=== PATIENT | female | born 1995 | race Two or more races ===

== ENCOUNTER → 2021-06-10 10:15 | Outpatient (BNVA) | payer OTHER, SELFPAY | PROVIDERS: PCP Physician Assistant Medical; Referring Provider Physician Assistant Medical; Visit Provider Physician Assistant ==

== ENCOUNTER → 2021-07-10 08:36 | Outpatient (BNVA) | payer OTHER, SELFPAY | PROVIDERS: PCP Physician Assistant Medical; Visit Provider Surgery ==

== ENCOUNTER 2021-07-14 10:02 | Outpatient (REF) | payer OTHER, SELFPAY ==
--- NOTE | ~2021-07-14 | XR_ITS ---
EXAMINATION: XR CHEST CLINICAL INFORMATION: Obesity COMPARISON: None TECHNIQUE: 2 views of the chest were obtained. FINDINGS: No significant abnormality is noted involving the heart, lungs, mediastinum, bony thorax or soft tissues. XR/XR chest 2V IMPRESSION: Unremarkable examination.
--- NOTE | 2021-07-14 10:15 | ECG_ITS ---
Test Reason : E66.0 Blood Pressure : / mmHG Vent. Rate : 072 BPM Atrial Rate : 072 BPM P-R Int : 134 ms QRS Dur : 094 ms QT Int : 392 ms P-R-T Axes : 022 036 028 degrees QTc Int : 429 ms Normal sinus rhythm Normal ECG No previous ECGs available Referred By: Jean-Pierre Caceres Electronically Signed By:OZZIE DELACRUZ
[2021-07-14 10:29] LABS: MANUAL DIFF FLAG NO
[2021-07-14 10:47] LABS: Basophils Absolute Auto 0.1 X10*3/uL (0.0-0.2); Basophils Percent Auto 0.6 % (0-2); Eosinophils Absolute Auto 0.5 X10*3/uL (0.0-0.4); Eosinophils Percent Auto 4.2 % (0-4); Hemoglobin 13.9 g/dl (12.0-16.0); Imm Gran Abs Auto 0.03 X10*3/uL (0.00-0.03); Imm Gran Pct Auto 0.3 % (0.0-0.4); Lymphocytes Absolute Auto 2.9 X10*3/uL (1.2-4.9); Lymphocytes Percent Auto 26.9 % (20-40); Mean Corpuscular HGB Conc 32.3 g/dl (31.0-35.0); Mean Corpuscular Hemoglobin 26.8 pg (27.0-33.0); Mean Corpuscular Volume 82.9 fL (80.0-98.0); Mean Platelet Volume 11.6 fL (9.4-12.3); Monocytes Absolute Auto 0.5 X10*3/uL (0.1-1.2); Monocytes Percent Auto 4.8 % (2-11); Neutrophils Absolute Auto 6.9 x10*3/uL (2.0-8.3); Neutrophils Percent Auto 63.2 % (45-73); Platelet Count 313 X10*3/uL (160-400); Red Blood Count 5.19 X10*6/uL (4.20-5.50); Red Cell Distribution Width 14.6 % (11.0-16.0); White Blood Count 10.9 X10*3/uL (4.8-10.8)
[2021-07-14 10:55] LABS: Estimated Average Glucose 128 mg/dL; Hemoglobin A1c % 6.1 %
[2021-07-14 11:25] LABS: Alanine Aminotransferase 56 U/L (0-31); Albumin Level 3.8 g/dL (3.5-5.0); Alkaline Phosphatase 38 U/L (39-117); Anion Gap 14 (12-20); Aspartate Amino Transferase 27 U/L (5-31); Bilirubin Total 0.4 mg/dL (0.0-1.0); Blood Urea Nitrogen 11 mg/dL (9-16); Calcium 8.9 mg/dL (8.4-10.2); Carbon Dioxide 23 mmol/L (22-29); Chloride 107 mmol/L (96-108); Cholesterol 168 mg/dL; Estimated Glomerular Filt Rate > 60; Glucose Random 112 mg/dL (60-115); HDL Cholesterol 38 mg/dL; Iron 99 mcg/dL (30-160); LDL Cholesterol Calculated 112 mg/dl; Percent Iron Saturation 29 % (15-50); Potassium 4.3 mmol/L (3.3-5.1); Sodium 140 mmol/L (135-145); Total Iron Binding Capacity 344 mcg/dL (228-428); Total Protein 7.2 g/dL (6.5-8.0); Triglycerides 91 mg/dL; Unsaturated Iron Binding 245 ug/dL
[2021-07-14 11:36] LABS: Ferritin 100 ng/mL (10-122); TSH reflex Free T4 1.91 uIU/mL (0.32-4.0); Vitamin D 25-OH Total 17.6 ng/mL (>30)
[2021-07-14 11:48] LABS: Folate 10.4 ng/mL (> or = 4.0); Vitamin B12 587 pg/mL (200-900)
[2021-07-14 14:29] LABS: Insulin 31 uU/mL (2-29)
[2021-07-15 13:01] LABS: Calcium (PTHI) 8.8 mg/dL (8.6-10.2); PTHI 55 pg/mL (14-64)
[2021-07-17 04:12] LABS: Zinc 82 mcg/dL (60-130)
[2021-07-19 13:26] LABS: Vitamin B1 8 nmol/L (8-30)
[2021-07-20 01:52] LABS: Vitamin A 42 mcg/dL (38-98)
== END 2021-07-14 10:03 | disposition home or self-care (01) ==
LOC: HO.XRAY 10:02
PROVIDERS: PCP Physician Assistant Medical; Visit Provider Surgery
DX: E11.9 Type 2 diabetes mellitus without complications (principal); E66.01 Morbid (severe) obesity due to excess calories; E78.5 Hyperlipidemia, unspecified; J45.909 Unspecified asthma, uncomplicated
CPT/HCPCS: 36415; 71046; 80053; 80061; 82306; 82607; 82728; 82746; 83036; 83525; 83540; 83970; 84425; 84443; 84590; 84630; 85025; 86140; 93005

== ENCOUNTER → 2021-08-04 08:10 | Outpatient (BNVA) | payer OTHER, SELFPAY | PROVIDERS: PCP Physician Assistant Medical; Visit Provider Dietitian, Registered | DX: E66.01 Morbid (severe) obesity due to excess calories (principal); E11.9 Type 2 diabetes mellitus without complications; Z68.42 Body mass index [BMI] 45.0-49.9, adult | CPT/HCPCS: 97802 ==

== ENCOUNTER → 2021-08-05 17:00 | Outpatient (BNVA) | payer OTHER, SELFPAY | PROVIDERS: PCP Physician Assistant Medical; Visit Provider Counselor Mental Health | DX: F50.81 Binge eating disorder (principal); F41.9 Anxiety disorder, unspecified | CPT/HCPCS: 90791 ==

== ENCOUNTER 2021-08-26 09:40 | Outpatient (REF) | payer OTHER, SELFPAY ==
--- NOTE | ~2021-08-26 | FL_ITS ---
EXAMINATION: XR FLUOROSCOPY UPPER GI WITH AIR CLINICAL INFORMATION: Obesity COMPARISON: None TECHNIQUE: Upper GI was performed using thin and thick barium and effervescent granules. FINDINGS: There is a small sliding hiatal hernia. No reflux is seen. Esophageal motility is normal. The stomach and duodenum are normal. No fold thickening, mass, ulcer or stricture is seen. FLUOROSCOPY TIME: 0.5 minutes DOSE AREA PRODUCT: 5.5 gomez per centimeter squared. 21 saved fluoroscopic images. FL/FL upper GI w air IMPRESSION: Small sliding-type hiatal hernia otherwise unremarkable exam.
--- NOTE | ~2021-08-26 | US_ITS ---
EXAMINATION: US COMPLETE ABDOMEN WITH LIVER ELASTOGRAPHY CLINICAL INFORMATION: Obesity COMPARISON: None. TECHNIQUE: Real-time imaging of the abdominal viscera. Noninvasive ultrasound liver fibrosis assessment is performed using Kee ElastPQ point quantification shear wave elastography (2D-SWE) with a C5-2 MHz transducer. Multiple elastography samples are obtained. FINDINGS: PANCREAS: Normal. The visualized pancreatic head and body are normal in appearance. The remainder of the pancreas is obscured from visualization by the overlying bowel gas. ABDOMINAL AORTA: The proximal, middle, and distal aortic segments are normal in caliber. INFERIOR VENA CAVA: Visualized portions are normal. LIVER: There is diffusely increased echogenicity of the liver consistent with fatty infiltration. No abnormal focal mass or intrahepatic bile duct dilatation is seen. The right lobe measures 16.6 cm in length. The left lobe measures 11.1 cm in length. Portal flow is hepatopedal Shear wave liver elastography median stiffness is 1.35 m/s (reference: normal median stiffness is 1.3 m/s or less). IQR/median stiffness to assess sampling precision is 0.1 (reference: good quality data set is IQR/median stiffness of 0.15 or less). GALLBLADDER: Normal. The gallbladder is physiologically distended without evidence of stones, sludge, polyps, wall thickening or pericholecystic fluid. COMMON BILE DUCT: Normal in caliber measuring 0.3 cm in diameter. RIGHT KIDNEY: Normal. No hydronephrosis. No renal calculi or focal parenchymal lesions. The kidney measures 12.2 cm in maximum dimension. LEFT KIDNEY: Normal. No hydronephrosis. No renal calculi or focal parenchymal lesions. The kidney measures 12.4 cm in maximum dimension. SPLEEN: Normal. The spleen measures 10.5 cm in maximum dimension. FREE FLUID: None. US/US abdomen comp w elastography IMPRESSION: 1. Diffusely increased echogenicity of the liver consistent with fatty infiltration. 2. Liver elastography: In the absence of other known clinical signs, measurements rule out compensated advanced chronic liver disease. If there are known clinical signs, further testing may be needed for confirmation. REFERENCE: Society of Radiologists in Ultrasound Liver Stiffness Thresholds (2020): LIVER STIFFNESS THRESHOLDS: *Liver Stiffness equal or less than 1.3 m/s: High probability of being normal. *Liver Stiffness less than 1.7 m/s: In the absence of other known clinical signs, rules out compensated advanced chronic liver disease. *Liver Stiffness 1.7-2.1 m/s: Suggestive of compensated advanced chronic liver disease but need further test for confirmation. *Liver Stiffness over 2.1 m/s: Rules in compensated advanced chronic liver disease. *Liver Stiffness over 2.4 m/s: Suggestive of clinically significant portal hypertension. QUALITY OF DATA SET: *IQR/Median value equal or less than 0.15 implies a quality data set. *IQR/Median value over 0.15 implies a poor quality data set. SIGNIFICANT CHANGE FROM PRIOR EXAM: Significant change if liver stiffness measurement is 10% or greater from prior exam. OTHER CONSIDERATIONS: The stage of liver fibrosis may be overestimated in the setting of acute hepatitis, liver inflammation, elevated liver function tests, hepatic vascular congestion, obstructive cholestasis, non-fasting state, and infiltrative diseases such as amyloidosis and lymphoma. In some patients with NAFLD, the liver stiffness thresholds for compensated advanced chronic liver disease may be lower. In causes other than viral hepatitis and NAFLD, liver stiffness thresholds are not well established.
== END 2021-08-26 09:41 | disposition home or self-care (01) ==
LOC: HO.US 09:40
PROVIDERS: Visit Provider Surgery
DX: E66.01 Morbid (severe) obesity due to excess calories (principal); E11.9 Type 2 diabetes mellitus without complications; E78.5 Hyperlipidemia, unspecified; J45.909 Unspecified asthma, uncomplicated
CPT/HCPCS: 74246; 76705; 76981

== ENCOUNTER 2021-09-08 11:54 | Outpatient (REF) | payer OTHER, SELFPAY ==
[2021-09-09 11:28] LABS: H Pylori Breath Test Negative (Negative)
== END 2021-09-08 11:55 | disposition home or self-care (01) ==
LOC: HO.LNP 11:54
PROVIDERS: Surgery; PCP Physician Assistant Medical; Visit Provider Physician Assistant
DX: E66.01 Morbid (severe) obesity due to excess calories (principal); E11.9 Type 2 diabetes mellitus without complications; J45.909 Unspecified asthma, uncomplicated; E78.5 Hyperlipidemia, unspecified
CPT/HCPCS: 83013; 99211

== ENCOUNTER → 2021-09-11 08:11 | Outpatient (BNVA) | payer OTHER, SELFPAY | PROVIDERS: PCP Physician Assistant Medical; Visit Provider Surgery | DX: Z13.89 Encounter for screening for other disorder (principal) ==

== ENCOUNTER → 2022-05-27 09:43 | Outpatient (BNVA) | payer OTHER, SELFPAY | PROVIDERS: PCP Physician Assistant Medical; Visit Provider Surgery | DX: Z13.89 Encounter for screening for other disorder (principal) ==

== ENCOUNTER → 2022-06-25 08:47 | Outpatient (BNVA) | payer OTHER, SELFPAY | PROVIDERS: PCP Physician Assistant Medical; Visit Provider Surgery | DX: E66.01 Morbid (severe) obesity due to excess calories (principal) ==

== ENCOUNTER → 2022-07-19 08:35 | Outpatient (BNVA) | payer OTHER, SELFPAY | PROVIDERS: PCP Physician Assistant Medical; Visit Provider Surgery | DX: Z13.89 Encounter for screening for other disorder (principal) ==

== ENCOUNTER → 2022-07-21 08:48 | Outpatient (BNVA) | payer OTHER, SELFPAY | PROVIDERS: PCP Physician Assistant Medical; Visit Provider Surgery | DX: Z13.89 Encounter for screening for other disorder (principal) ==

== ENCOUNTER → 2022-07-28 08:00 | Outpatient (BNVA) | payer OTHER, SELFPAY | PROVIDERS: PCP Physician Assistant Medical; Visit Provider Surgery ==

== ENCOUNTER → 2022-08-04 08:02 | Outpatient (BNVA) | payer OTHER, SELFPAY | PROVIDERS: PCP Physician Assistant Medical; Visit Provider Surgery ==

== ENCOUNTER → 2022-08-06 13:02 | Outpatient (BNVA) | payer OTHER, SELFPAY | PROVIDERS: PCP Physician Assistant Medical; Visit Provider Surgery ==

== ENCOUNTER 2022-08-19 08:03 | Inpatient (IN) | payer OTHER, SELFPAY ==
[2022-08-03 10:16] VITALS: BMI 44.6
[2022-08-11 09:06] LABS: MANUAL DIFF FLAG NO
[2022-08-11 09:33] LABS: INTERNATIONAL NORM RATIO 1.1 (0.9-1.1); Prothrombin Time 12.6 SEC (10.0-13.1)
[2022-08-11 09:34] LABS: Basophils Percent Auto 0.4 % (0-2); Eosinophils Absolute Auto 0.2 X10*3/uL (0.0-0.4); Eosinophils Percent Auto 2.3 % (0-4); Hematocrit 44.8 % (37.0-47.0); Hemoglobin 14.6 g/dl (12.0-16.0); Imm Gran Abs Auto 0.01 X10*3/uL (0.00-0.03); Imm Gran Pct Auto 0.1 % (0.0-0.4); Lymphocytes Absolute Auto 2.2 X10*3/uL (1.2-4.9); Lymphocytes Percent Auto 30.1 % (20-40); Mean Corpuscular HGB Conc 32.6 g/dl (31.0-35.0); Mean Corpuscular Hemoglobin 26.7 pg (27.0-33.0); Mean Corpuscular Volume 82.1 fL (80.0-98.0); Mean Platelet Volume 11.4 fL (9.4-12.3); Monocytes Absolute Auto 0.5 X10*3/uL (0.1-1.2); Monocytes Percent Auto 6.2 % (2-11); Neutrophils Absolute Auto 4.4 x10*3/uL (2.0-8.3); Neutrophils Percent Auto 60.9 % (45-73); Platelet Count 232 X10*3/uL (160-400); Red Blood Count 5.46 X10*6/uL (4.20-5.50); Red Cell Distribution Width 14.5 % (11.0-16.0); White Blood Count 7.3 X10*3/uL (4.8-10.8)
[2022-08-11 09:36] LABS: Partial Thromboplastin Time 28.8 SEC (26.0-36.4)
[2022-08-11 09:40] LABS: Estimated Average Glucose 120 mg/dL; Hemoglobin A1c % 5.8 %
[2022-08-11 09:55] LABS: Alanine Aminotransferase 32 U/L (0-31); Alkaline Phosphatase 40 U/L (39-117); Anion Gap 15 (12-20); Aspartate Amino Transferase 22 U/L (5-31); Bilirubin Total 0.6 mg/dL (0.0-1.0); Blood Urea Nitrogen 10 mg/dL (9-16); Calcium 9.5 mg/dL (8.4-10.2); Carbon Dioxide 27 mmol/L (22-29); Chloride 104 mmol/L (96-108); Cholesterol 106 mg/dL; Creatinine Clr Calc Pharmacy 156.3; Estimated Glomerular Filt Rate > 60; Glucose Random 91 mg/dL (60-115); HDL Cholesterol 35 mg/dL; LDL Cholesterol Calculated 59 mg/dl; Potassium 4.3 mmol/L (3.3-5.1); Sodium 142 mmol/L (135-145); Total Protein 7.1 g/dL (6.5-8.0); Triglycerides 62 mg/dL
[2022-08-11 10:09] LABS: Insulin 23 uU/mL (2-29); TSH reflex Free T4 1.81 uIU/mL (0.32-4.0)
--- NOTE | 2022-08-13 19:07 | P.HPSUR_ITS ---
Pre-Procedural Eval Section A Date of Service: 08/13/22 The patient is an INPATIENT: No The History & Physical has been completed within 30 days and I have reviewed it.: Yes Section B Chief Complaint: Morbid (severe) obesity due to excess calories Relevant Family History (Specify if Yes): No Relevant Social History: None Present Medications: None Medical History: No relevant PMH History of Previous Operations: No relevant previous surgery Allergies: Allergies Allergy/AdvReac Type Severity Reaction Status Date / Time Seasonal Allergies Allergy Intermediate Sneezing Verified 08/04/22 09:09 prednisone AdvReac Severe Abdominal Verified 08/04/22 09:09 Pain Dust Mite Mixed Allergen Ext Allergy Severe Sneezing Uncoded 08/04/22 09:09 shellfish, iodine, Allergy Unknown Itching Uncoded 08/04/22 09:09 cockroaches Review of Systems Sugical H&P ROS: Negative: Constitution, Cardiovascular, Respiratory, Neurological, Psychiatric, Hem-Onc, Allergic/Immunologic, Gastrointestinal, Genitourinary, Musculoskeletal, Integumentary, Endocrine and Eyes/Ears/Nose/Throat Exam Surgical H&P Exam: Normal: HEENT, Normal: Heart, Normal: Lungs, Normal: Extremit ies, Normal: Abdomen, Normal: Skin and Normal: Neurological Plan Diagnosis/Plan: Unchanged I have reviewed the history and physical and performed a pertinent physical examination on my patient. No changes have occurred unless specified. Time Spent With Patient Time: Total time managing care of this patient today ____ minutes.
--- NOTE | 2022-08-18 | ECG_ITS ---
Test Reason : PREOP Blood Pressure : / mmHG Vent. Rate : 085 BPM Atrial Rate : 085 BPM P-R Int : 146 ms QRS Dur : 098 ms QT Int : 372 ms P-R-T Axes : 014 035 036 degrees QTc Int : 442 ms Normal sinus rhythm with sinus arrhythmia Normal ECG When compared with ECG of 14-JUL-2021 10:27, No significant change was found Referred By: Lucia Rosen Electronically Signed By:OZZIE DELACRUZ
--- NOTE | 2022-08-18 09:30 | P.CONAN_ITS ---
Documented by User: Lucia Rosen NP 08/18/22 09:34 HPI - Anesthesia Eval Consult details Narrative: 26yo F for Gastrectomy Sleeve,egd possible diaphragmatic hernia, Possible ventral hernia,possible open PMFSH Active Problems Active Problems: All Active Problems (Updated 08/03/22 @ 10:11 by Radha Martinez, LALO) Vitamin D deficiency (Acute) Binge-eating disorder, in partial remission, mild (Acute) Anxiety (Acute) Depression (Acute) Hyperlipidemia (Acute) Non-insulin dependent type 2 diabetes mellitus (Acute) PCOS (polycystic ovarian syndrome) (Acute) Asthma (Acute) Morbid obesity (Acute) Past Medical History Medical History Anxiety Asthma Depression Hyperlipidemia Morbid obesity Non-insulin dependent type 2 diabetes mellitus PCOS (polycystic ovarian syndrome) Snores Family History Family History Mother Hypertension Father Hypertension Surgical History Surgical History No pertinent past surgical history Social History Social History Are you a primary memory care program director to a significant other at home: No Do you presently have visiting nurse or other home services: No Alcohol intake: current Alcohol intake frequency: holidays/special occasions only Patient Tobacco Use Status: Never used Tobacco Use of substances other than those prescribed or required for medical reasons: Yes Substance Use Type: Marijuana Substance Use Frequency: Daily Have you been hit, kicked, punched, or otherwise hurt by someone within the past year? If so, by whom?: No Are you DNR?: No Advance Directives: No Advance Directives Information Provided: Yes (info mailed w/ pre-op instructions) Advance Directives on File: No Recently lost weight without trying: No How much weight loss: 24-33 pounds Eating poorly because of decreased appetite: No Nutrition screen score: 3 Nutrition Risks: No Nutritional Risk Patient : No FDLMP: 07/31/22 : No Poor oral hygiene: No Meds Allergies Allergy/AdvReac Type Severity Reaction Status Date / Time Seasonal Allergies Allergy Intermediate Sneezing Verified 08/04/22 09:09 prednisone AdvReac Severe Abdominal Verified 08/04/22 09:09 Pain Dust Mite Mixed Allergen Ext Allergy Severe Sneezing Uncoded 08/04/22 09:09 shellfish, iodine, Allergy Unknown Itching Uncoded 08/04/22 09:09 cockroaches Home Medications Medication Instructions Recorded Confirmed Last Taken Type norgestimate 0.25 mg-ethinyl 1 tab PO DAILY 07/08/21 08/19/22 Unknown History estradiol 35 mcg tablet (Estarylla) albuterol sulfate 90 mcg/actuation 2 puff inhalation Q6H PRN Wheezing 07/10/21 08/04/22 08/19/22 07:00 History aerosol inhaler (ProAir HFA) fluticasone propionate 100 1 inh inhalation Q12H 07/10/21 08/19/22 Unknown History mcg/actuation blister powder for inhalation (Flovent Diskus) atorvastatin 20 mg tablet 1 tab PO DAILY 08/03/22 08/19/22 Unknown History cetirizine 10 mg tablet 10 mg PO DAILY 08/03/22 08/19/22 Unknown History cholecalciferol (vitamin D3) 25 1 cap PO DAILY 08/03/22 08/19/22 Unknown History mcg (1,000 unit) capsule metformin 500 mg tablet 1 tab PO QAM 08/03/22 08/19/22 Unknown History ondansetron HCl 4 mg tablet 4 mg PO Q12H PRN Nausea 08/19/22 08/19/22 Unknown History Exam Exam Date and Time: August 18, 2022 0930 Height,Weight and Vital Signs: Height 5 ft 7 in Weight 129.274 kg Pertinent Lab Results Pertinent Lab Results: Laboratory Tests 08/11/22 08/11/22 08/11/22 09:04 09:04 09:04 WBC 7.3 RBC 5.46 Hgb 14.6 Hct 44.8 MCV 82.1 MCH 26.7 L MCHC 32.6 RDW 14.5 Plt Count 232 D MPV 11.4 Immature Gran % (Auto) 0.1 Neut % (Auto) 60.9 Lymph % (Auto) 30.1 [place] % (Auto) 6.2 Eos % (Auto) 2.3 Baso % (Auto) 0.4 Lymph # (Auto) 2.2 [place] # (Auto) 0.5 Eos # (Auto) 0.2 Baso # (Auto) 0.0 Abs Immat Gran (auto) 0.01 Absolute Neuts (auto) 4.4 Absolute Nucleated RBC 0.000 Nucleated RBC % (auto) 0.0 PT 12.6 INR 1.1 APTT 28.8 Sodium 142 Potassium 4.3 Chloride 104 Carbon Dioxide 27 Anion Gap 15 BUN 10 Creatinine 0.75 Estim Creat Clear Calc 156.3 Estimated GFR > 60 Random Glucose 91 Estimat Average Glucose Hemoglobin A1c % Insulin Level 23 Calcium 9.5 D Total Bilirubin 0.6 AST 22 ALT 32 H Alkaline Phosphatase 40 C-Reactive Protein 0.30 Total Protein 7.1 Albumin 4.0 Triglycerides 62 Cholesterol 106 LDL Cholesterol, Calc 59 HDL Cholesterol 35 TSH 1.81 Blood Type Antibody Screen 08/11/22 08/11/22 09:04 09:04 WBC RBC Hgb Hct MCV MCH MCHC RDW Plt Count MPV Immature Gran % (Auto) Neut % (Auto) Lymph % (Auto) [place] % (Auto) Eos % (Auto) Baso % (Auto) Lymph # (Auto) [place] # (Auto) Eos # (Auto) Baso # (Auto) Abs Immat Gran (auto) Absolute Neuts (auto) Absolute Nucleated RBC Nucleated RBC % (auto) PT INR APTT Sodium Potassium Chloride Carbon Dioxide Anion Gap BUN Creatinine Estim Creat Clear Calc Estimated GFR Random Glucose Estimat Average Glucose 120 Hemoglobin A1c % 5.8 Insulin Level Calcium Total Bilirubin AST ALT Alkaline Phosphatase C-Reactive Protein Total Protein Albumin Triglycerides Cholesterol LDL Cholesterol, Calc HDL Cholesterol TSH Blood Type B Positive Antibody Screen NEGATIVE Assessment and Plan Assessment Anesthesia Assessment: Chart Reviewed Documented by User: Lala Mckinnon MD 08/19/22 10:41 [facility] Active Problems Active Problems: All Active Problems (Updated 08/19/22 @ 10:33 by Lala Mckinnon MD) Vitamin D deficiency (Acute) Binge-eating disorder, in partial remission, mild (Acute) Anxiety (Acute) Depression (Acute) Hyperlipidemia (Acute) Non-insulin dependent type 2 diabetes mellitus (Acute) PCOS (polycystic ovarian syndrome) (Acute) Asthma (Acute). Used inhalers this morning Morbid obesity (Acute). BMI 44.6 Denies PAULETTE Tickle in throat, sore throat x3 days. No cough. No fever Past Medical History Medical History Anxiety Asthma Depression Hyperlipidemia Morbid obesity Non-insulin dependent type 2 diabetes mellitus PCOS (polycystic ovarian syndrome) Snores Family History Family History Mother Hypertension Father Hypertension Family history of problems with anesthesia: No Surgical History Surgical History No pertinent past surgical history History of Problems with Anesthesia: Yes Social History Social History Are you a primary memory care program director to a significant other at home: No Do you presently have visiting nurse or other home services: No Alcohol intake: current Alcohol intake frequency: holidays/special occasions only Patient Tobacco Use Status: Never used Tobacco Use of substances other than those prescribed or required for medical reasons: Yes Substance Use Type: Marijuana Substance Use Frequency: Daily Have you been hit, kicked, punched, or otherwise hurt by someone within the past year? If so, by whom?: No Are you DNR?: No Advance Directives: No Advance Directives Information Provided: Yes (info mailed w/ pre-op instruc tions) Advance Directives on File: No Recently lost weight without trying: No How much weight loss: 24-33 pounds Eating poorly because of decreased appetite: No Nutrition screen score: 3 Nutrition Risks: No Nutritional Risk Patient : No FDLMP: 07/31/22 : No Poor oral hygiene: No Meds Allergies Allergy/AdvReac Type Severity Reaction Status Date / Time Seasonal Allergies Allergy Intermediate Sneezing Verified 08/04/22 09:09 prednisone AdvReac Severe Abdominal Verified 08/04/22 09:09 Pain Dust Mite Mixed Allergen Ext Allergy Severe Sneezing Uncoded 08/04/22 09:09 shellfish, iodine, Allergy Unknown Itching Uncoded 08/04/22 09:09 cockroaches Home Medications Medication Instructions Recorded Confirmed Last Taken Type norgestimate 0.25 mg-ethinyl 1 tab PO DAILY 07/08/21 08/19/22 Unknown History estradiol 35 mcg tablet (Estarylla) albuterol sulfate 90 mcg/actuation 2 puff inhalation Q6H PRN Wheezing 07/10/21 08/04/22 08/19/22 07:00 History aerosol inhaler (ProAir HFA) fluticasone propionate 100 1 inh inhalation Q12H 07/10/21 08/19/22 Unknown History mcg/actuation blister powder for inhalation (Flovent Diskus) atorvastatin 20 mg tablet 1 tab PO DAILY 08/03/22 08/19/22 Unknown History cetirizine 10 mg tablet 10 mg PO DAILY 08/03/22 08/19/22 Unknown History cholecalciferol (vitamin D3) 25 1 cap PO DAILY 08/03/22 08/19/22 Unknown History mcg (1,000 unit) capsule metformin 500 mg tablet 1 tab PO QAM 08/03/22 08/19/22 Unknown History ondansetron HCl 4 mg tablet 4 mg PO Q12H PRN Nausea 08/19/22 08/19/22 Unknown History Exam Height,Weight and Vital Signs: Height 5 ft 7 in Weight 129.274 kg Vital Signs Temp Pulse Resp BP Pulse Ox O2 Del Method 08/19/22 08:40 98.1 F 76 16 120/76 98 Room Air Pertinent Lab Results Pertinent Lab Results: Laboratory Tests 08/11/22 08/11/22 08/11/22 09:04 09:04 09:04 WBC 7.3 RBC 5.46 Hgb 14.6 Hct 44.8 MCV 82.1 MCH 26.7 L MCHC 32.6 RDW 14.5 Plt Count 232 D MPV 11.4 Immature Gran % (Auto) 0.1 Neut % (Auto) 60.9 Lymph % (Auto) 30.1 [place] % (Auto) 6.2 Eos % (Auto) 2.3 Baso % (Auto) 0.4 Lymph # (Auto) 2.2 [place] # (Auto) 0.5 Eos # (Auto) 0.2 Baso # (Auto) 0.0 Abs Immat Gran (auto) 0.01 Absolute Neuts (auto) 4.4 Absolute Nucleated RBC 0.000 Nucleated RBC % (auto) 0.0 PT 12.6 INR 1.1 APTT 28.8 Sodium 142 Potassium 4.3 Chloride 104 Carbon Dioxide 27 Anion Gap 15 BUN 10 Creatinine 0.75 Estim Creat Clear Calc 156.3 Estimated GFR > 60 Random Glucose 91 Estimat Average Glucose Hemoglobin A1c % Insulin Level 23 Calcium 9.5 D Total Bilirubin 0.6 AST 22 ALT 32 H Alkaline Phosphatase 40 C-Reactive Protein 0.30 Total Protein 7.1 Albumin 4.0 Triglycerides 62 Cholesterol 106 LDL Cholesterol, Calc 59 HDL Cholesterol 35 TSH 1.81 Blood Type Antibody Screen 08/11/22 08/11/22 09:04 09:04 WBC RBC Hgb Hct MCV MCH MCHC RDW Plt Count MPV Immature Gran % (Auto) Neut % (Auto) Lymph % (Auto) [place] % (Auto) Eos % (Auto) Baso % (Auto) Lymph # (Auto) [place] # (Auto) Eos # (Auto) Baso # (Auto) Abs Immat Gran (auto) Absolute Neuts (auto) Absolute Nucleated RBC Nucleated RBC % (auto) PT INR APTT Sodium Potassium Chloride Carbon Dioxide Anion Gap BUN Creatinine Estim Creat Clear Calc Estimated GFR Random Glucose Estimat Average Glucose 120 Hemoglobin A1c % 5.8 Insulin Level Calcium Total Bilirubin AST ALT Alkaline Phosphatase C-Reactive Protein Total Protein Albumin Triglycerides Cholesterol LDL Cholesterol, Calc HDL Cholesterol TSH Blood Type B Positive Antibody Screen NEGATIVE Laboratory Results - last 24 hr 08/18/22 08/19/22 08/19/22 14:18 08:33 09:02 POC Glucose 82 Beta HCG, Quant < 2 COVID-19 ([facility]) Negative COVID-19 Clin Com See Note Airway Mallampati Class: II TM Dist: >3cm Neck ROM: Full Loose/Missing/Broken Teeth: No (Denies broken, loose, missing teeth) Heart: RRR Lungs: CTAB Assessment and Plan Assessment Anesthesia Assessment: Anesthesia Plan Discussed Final Anesthetic Review Family History of Problems with Anesthesia: No History of Problems with Anesthesia: Yes NPO: Yes ASA Class: III Final Preanesthetic Review: No Changes in Pt Med Stat, Meds/Allgs Chart Reviewed, Consent Obtained/Reviewed and Anes Risks/Benef Reviewed Patient Risk: Intermediate Procedure Risk: Intermediate Assessment/Block/Sedation in SS: Assess/Block/Sedation-SS Anesthetic Plan Anesthetic Plan: GA Disposition: Standard PACU and Inp. Admit - Standard Bed
[2022-08-18 14:58] LABS: COVID-19 Test Negative (Negative); IDNOW Serial# 08D9AD1C
[2022-08-19] VITALS (12 sets, daily range): BP systolic 120–155; BP diastolic 72–100; PULSE 53–83; RESP 16–19; TEMP 36.1–36.9; O2SAT 95–100; BMI 44.5
--- NOTE | 2022-08-19 08:41 | PHA.MEDREC ---
Pharmacy Consult ? Medication Reconciliation Pharmacy has completed the medication reconciliation.
[2022-08-19] MEDS: Lactated Ringers 1,000 ML 999 ML IV (09:01)
[2022-08-19 09:07] LABS: HCG Quantitative < 2 mIU/mL
[2022-08-19] MEDS: Lactated Ringers 1,000 ML 100 ML IVCONT ×2 (10:24→22:43)
[2022-08-19 10:32] LABS: Glucose, Whole Blood 82 mg/dL (60-115)
--- NOTE | 2022-08-19 10:34 | P.BOP_ITS ---
Brief Operative Note Date of Service: 08/19/22 Pre-op diagnosis: Morbid obesity with comorbidities (see below) Post-op diagnosis: same (& congenital abdominal adhesions) Procedure: INITIAL PATIENT BMI ON PRESENTATION AT OUR OFFICE: 49.3 kg/m2 LAST BMI BEFORE SURGERY: 44.3 kg/m2 COMORBIDITIES: asthma, hyperlipidemia, non-insulin dependent diabetes, PCOS, Depression, Anxiety, diaphragmatic hernia, liver steatosis ?The patient presented to the Weight Management Program with significant obesity that was negatively impacting the patient's comorbidities as listed above.? The program is a phased program with a special focus on preoperative medical weight management to promote substantial weight loss and prepare the patients for the second phase of the program: bariatric surgery. The patient participated in an intensive weekly lifestyle ?intervention and exercise program during which the patient ?has lost between the initial office visit and the last preoperative visit 32.8 lbs, or 10.41% of initial actual body weight. It was deemed appropriate for the patient to now have bariatric surgery. In light of the current Covid-19 pandemic and the well documented strong association of obesity and increased risk of worse outcomes if infected with Covid-19 (REFERENCES: https://pubmed.ncbi.nlm.nih.gov/13029646/ ,? https://pubmed.ncbi.nlm.nih.gov/56743654/ ), any delay in undergoing bariatric surgery may lead to the patient's worsening health condition and increased?risk of more severe Covid-19 disease if infected. In addition a recent?study from [facility] published in [facility] on 05/18/2021 ([email or web address]) found that, among patients with obesity, substantial weight loss achieved with surgery was associated with improved outcomes of COVID-19 infection. The findings suggest that obesity can be a modifiable risk factor for the severity of COVID-19 infection. In addition, the patient met the BMI-criteria for bariatric surgery based on the BMI on initial presentation. The patient should not be penalized for achieving such weight loss because ?it is not sustainable long-term without surgical int ervention and it was achieved in preparation for bariatric surgery ?under my direction and based on my published research ([email or web address]).[email or web address] and? https://www.soard.org/article/[email or web address](58)98387-X/pdf ) ?that a 10% preoperative weight loss improves long-term weight loss after surgery and reduces perioperative complications.? Insurance carriers such as [facility] have endorsed my recommendations ?and have included in their policies criteria to include a 10% preoperative weight loss requirement. PROCEDURE: Esophago-gastroscopy, laparoscopic lysis of adhesions, laparoscopic sleeve gastrectomy and laparoscopic gastropexy INDICATIONS: This is a 26 year-old female who was electively scheduled for laparoscopic, possibly open sleeve gastrectomy. The risks and complications of the procedure were discussed with the patient in advance, particularly the possibility of ; pulmonary embolism; staple line leak; bleeding; GERD; cardiac, pulmonary, or renal complications; as well as long-term problems such as insufficient weight loss, vitamin deficiency, strictures, or ulcers. The patient understood all the risks, and was in agreement to proceed with surgery. DESCRIPTION OF PROCEDURE: After informed consent was obtained from the patient, the patient was given preoperative antibiotics, and was transferred to the operating room. After successful induction of general anesthesia, pneumatic compression devices were placed on both lower extremities. An upper endoscopy was performed next. The oropharynx and esophagus appeared to be within normal limits. There was no diaphragmatic hernia present consistent with the findings of the preoperative upper GI. The stomach was entered. Then after all fluid and air were suctioned and the stomach was fully decompressed, the scope was withdrawn and secured in the mid esophagus. The patient was then prepped and draped in the usual sterile manner, and abdominal access was established at the right upper quadrant with the Katherine technique. A 12 mm blunt port was inserted, and the abdomen was insufflated with CO2 to a pressure of 15 mmHg. Under direct visualization, additional ports were placed, specifically two 5 mm Versi-step ports to the left upper quadrant, and a 5 mm Versi-Step port to the right upper quadrant. 1% lidocaine plain was used to infiltrate all port sites as well as all fascia defects. Using the EndoClose suture passer device, I placed a #1 Polysorb tie across the falciform ligament in order to retract it up against the abdominal wall and prevent injury of the ligament with our instruments during the procedure. There were adhesions in the abdomen involving the greater omentum and the anterior abdominal wall. Those were lysed completely with the ultrasonic device. Following that, the patient was placed in a steep reverse Trendelenburg position. An additional 5 mm port was placed to the right flank for the Mediflex retractor that was used to retract the left lobe of the liver. The gastro-esophageal fat pad was opened with the ultrasonic device (Thunderbeat, Olympus) and the anterior esophagus and hiatus were exposed. The angle of His was opened with the ultrasonic device the fundus of the stomach from any diaphragmatic and splenic attachments. I then opened the gastrocolic ligament between the transverse colon and the greater curvature of the stomach with the ultrasonic device to enter the lesser sac and facilitate the ligation of the short gastric vessels. I started at a mid-point along the greater curvature and using the Thunderbeat, all short gastric vessels were divided all the way to the angle of His until the left tyra was completely dissected at its entirety. I then divided the gastro-colic ligament distally to a distance of about 3-4 cm proximal to the pylorus. There were extensive congenital adhesions between the pancreas and posterior gastric wall. Those were lysed completely with the ultrasonic device. Adhesi olysis took approximately 45 min to complete. The stomach was then divided transversely with one Endo KRISTIN-45 purple, and four KRISTIN-60 articulating orange loads using the AEON stapler and loads. Every effort was made that the gastric sleeve had a tubular shape and an even caliber throughout. Once the sleeve resection was completed, the staple line of the gastric sleeve was reinforced with Hemoclips. The resected stomach was retrieved without difficulty from the Katherine port. A gastropexy was then performed in order to prevent postoperative GERD and partial gastric volvulus. Several interrupted 2.0 Surgidac sutures were placed between the sleeve's staple line and the previously divided greater omentum and gastro-colic ligament using the Endo-Stitch device. ?An upper endoscopy was performed. There was no narrowing at the GE junction. The scope was easily advanced all the way to the pylorus which was clearly visualized. There was no narrowing anywhere and the sleeve's caliber was even th roughout. The sleeve's staple line was inspected and there was no evidence of ischemia, bleeding or dehiscence. At that point the gastroscope was withdrawn from the patient?s mouth while we were decompressing the bowel and the stomach from any remaining air. I looked into the lesser sac to see how the sleeve was situating and it was situating well. There was no bleeding from the staple line, spleen, or short gastric vessels. The Mediflex retractor was removed, and the undersurface of the liver was inspected and there was no bleeding. The patient was placed in supine position. I closed the fascial defect of the 12 mm port site with a figure of eight #1 Polysorb suture. Then 30cc of Ropivacaine plain with 10 mg of Dexamethasone were used to infiltrate the fascial closure as well as all skin incisions. A total of 7ml of Zynrelef was applied in the Katherine wound. At this point, the abdomen was deflated, all ports were removed under direct vision, and no bleeding was noted from any of the port sites. The skin incisions were irrigated with saline and were closed with 4-0 absorbable monofilament sutures. Steri-Strips and OpSites were used to cover all incisions. The patient was extubated and was transferred in stable condition to the recovery room for further care. I was present and performed all orr parts of the procedure. Mr. Jiménez was the mate first. There were no residents to assist with this case. Je Caceres MD, PhD, FACS Surgeon: Jean-Pierre Caceres MD Anesthesia: GETA, local and none (TAP block and 7ml Zynrelef) Was an Bi Developer used for this Procedure?: No Bi Developer: Sudarshan Jiménez Estimated blood loss (mL): 10 IV fluids (mL): 3,000 Urine output (mL): 0 (No Wolf to record output) Pathology: other (Stomach) Condition: stable Disposition: PACU
--- NOTE | 2022-08-19 10:38 | PM.PNGS ---
Subjective Subjective Date of Service: 08/20/22 Interval history: Feels well. Mild incisional pain. She is tolerating phase 1 bariatric diet Physical Exam Vital Signs: Vital Signs: Last Vital Signs Temp 98.1 F 08/19/22 08:40 Pulse 76 08/19/22 08:40 Resp 16 08/19/22 08:40 BP 120/76 08/19/22 08:40 Pulse Ox 98 08/19/22 08:40 O2 Del Method Room Air 08/19/22 08:40 BMI result Body Mass Index 44.6 GI: Inspection: Yes normal to inspection, Yes incision (clean, dry and intact) and Yes obesity Palpation (GI): Soft to palpation Extrem: Right lower extremity: normal to inspection (no calf tenderness) Left lower extremity: normal to inspection (no calf tenderness) Objective Data Active Medications Albuterol Sulfate (Albuterol Sulfate (0.083%) 2.5 Mg/3 Ml Vial.Neb) 2.5 mg INHALE ONCE PRN PRN Reason: Shortness of Breath/Wheezing Lactated Ringer's (Lr) 1,000 mls @ 100 mls/hr IVCONT .Q10H EDE Last Admin: 08/19/22 10:24 Dose: 100 mls/hr Documented By: TYRELL Labs 08/11/22 09:04 08/11/22 09:04 Labs: Laboratory Results - last 24 hr 08/18/22 08/19/22 08/19/22 14:18 08:33 09:02 POC Glucose 82 Beta HCG, Quant < 2 COVID-19 ([facility]ICK) Negative COVID-19 Clin Com See Note Procedures Date of Service Date of Service: 08/20/22 Progress Note: A&P Assessment and plan (1) Morbid obesity: Status: Acute Assessment and Plan: s/p laparoscopic sleeve gastrectomy, lysis of adhesions and gastropexy Doing well Will check am labs and if OK the patient will be discharged home (2) Asthma: Status: Acute (3) PCOS (polycystic ovarian syndrome): Status: Acute (4) Non-insulin dependent type 2 diabetes mellitus: Status: Acute (5) Hyperlipidemia: Status: Acute (6) Depression: Status: Acute (7) Anxiety: Status: Acute (8) Diaphragmatic hernia: Status: Acute (9) Steatosis, liver: Status: Acute (10) Congenital intra-abdominal adhesions: Status: Acute (11) S/P laparoscopic sleeve gastrectomy: Status: Acute Time Spent With Patient Time: Total time managing care of this patient today ____ minutes. Quality Stroke Does the patient have a stroke diagnosis?: No VTE Prior VTE?: No VTE Risk Level:: Surgical - moderate VTE Device Contraindication: N/A - Device Ordered VTE Drug Contraindication: Treatment Not Indicated
--- NOTE | 2022-08-19 13:40 | PM.DS ---
DS: Providers Provider Date of Service: 08/20/22 Date of admission: 08/19/22 08:03 Primary care physician: Charley Cedillo PA-C DS: Diagnosis Discharge Diagnosis (1) Morbid obesity: Status: Acute (2) Asthma: Status: Acute (3) PCOS (polycystic ovarian syndrome): Status: Acute (4) Non-insulin dependent type 2 diabetes mellitus: Status: Acute (5) Hyperlipidemia: Status: Acute (6) Depression: Status: Acute (7) Anxiety: Status: Acute (8) Diaphragmatic hernia: Status: Acute (9) Steatosis, liver: Status: Acute DS: Summary Hospital Course Hospital Course: ADMITTING DIAGNOSIS: morbid obesity, PCOS, anxiety, depression, niddm, asthma ? DISCHARGE DIAGNOSIS: same, s/p laparoscopic sleeve gastrectomy ? PAST SURGICAL HISTORY: none ? PROCEDURE: upper endoscopy, laparoscopic sleeve gastrectomy ? DISCHARGE SUMMARY: ? History of Present Illness: ? The patient is a?26 year-old woman with a BMI of?49.2 kg/m2 and associated co-morbidities as described above. The patient had extensive work-up,lost?29.8 lbs preoperatively and was electively scheduled for laparoscopic, possible open sleeve gastrectomy and gastropexy. Risks and complications of the surgery were discussed with the patient in advance, particularly the possibility of , pulmonary embolism, anastomotic leak, bleeding, bowel injury, GERD, cardiac, renal or pulmonary complications. The patient understood all the risks and was in agreement with the surgical plan. ? Hospital Course: ? The patient underwent an uneventful laparoscopic sleeve gastrectomy with gastropexy on the day of admission. Postoperatively, the patient was transferred to the surgical floor. The patient received IV Acetaminophen and IV dilaudid for pain control. Patient was started on bariatric phase 1 diet POD #0. On postoperative day one, the patient was feeling well without nausea, vomiting, fevers, or tachycardia. The patient had some mild incisional pain and the abdomen was soft. ? On the morning of postoperative day one, the patient was continued on 1 ounce of water or ice every half hour. During the day, the patient did fairly well, having some incisional pain, but able to ambulate adequately and to tolerate liquids well. ? Since the patient is doing well, we decided that the patient was ready to be discharged. The patient was given instructions to follow-up with me next week and to call my office for any fever over 101, persistent abdominal pain, nausea, vomiting, GERD, symptoms of DVT such as calf tenderness, or leg swelling, or pulmonary embolism such as chest pain or shortness of breath. The patient was also instructed to drink 40-60 ounces of liquids per day using the 1-ounce cups. The patient had been given prescriptions for Tylenol for pain, Zofran prn for nausea, and pantoprazole and carafate previously. The patient was encouraged to ambulate and use the incentive spirometer. The patient was allowed to shower, but no baths, and encouraged to stay active at home. All of these instructions were given to the patient personally. All questions were answered and the patient understood all instructions, the instructions were also given to the patient in print. Time Spent with Patient Time attestation: Total time managing care of this patient today ____ minutes. Discharge coordination time: Less than 30 minutes Quality: Safe Use of Opioids Does Pt have an Active Cancer Diagnosis on the Problem List?: No Quality: Stroke Does the patient have a stroke diagnosis?: No Physical Exam Vital Signs: Vital Signs: Last Vital Signs Temp 98.1 F 08/19/22 08:40 Pulse 76 08/19/22 08:40 Resp 16 08/19/22 08:40 BP 120/76 08/19/22 08:40 Pulse Ox 98 08/19/22 08:40 O2 Del Method Room Air 08/19/22 08:40 BMI result Body Mass Index 44.6 DS: Data Data Completed and Pending Pending studies at discharge: Pending at discharge 08/19/22 12:34 Surgical [PTH] Routine Labs on day of discharge: Laboratory Results - last 24 hr 08/18/22 08/19/22 08/19/22 14:18 08:33 09:02 POC Glucose 82 Beta HCG, Quant < 2 COVID-19 (NICK) Negative COVID-19 Clin Com See Note Discharge Plan Discharge Anticipated Discharge Date/Time: 08/20/22 10:00 Patient Disposition: Home, Self-Care Discharge Diagnosis: s/p laparoscopic sleeve gastrectomy Referrals: Charley Cedillo PA-C [Primary Care Provider] - 1 Week Discharge Medications: Continued atorvastatin 20 mg tablet 1 tab PO DAILY cetirizine 10 mg Tablet 10 mg PO DAILY ondansetron HCl 4 mg tablet 4 mg PO Q12H PRN (Reason: Nausea) Rx Instructions: ONLY use if you have nausea as needed albuterol sulfate [ProAir HFA] 90 mcg/actuation HFA aerosol inhaler 2 puff inhalation Q6H PRN (Reason: Wheezing) Flovent Diskus 100 mcg/actuation blister with device 1 inh inhalation Q12H pantoprazole 40 mg tablet,delayed release (DR/EC) 40 mg PO DAILY Qty: 30 2RF sucralfate 100 mg/mL suspension 10 ml PO BID Qty: 400 2RF Held metformin 500 mg tablet 1 tab PO QAM Hold Instructions: until discussed with Dr Caceres norgestimate-ethinyl estradiol [Estarylla] 0.25-35 mg-mcg tablet 1 tab PO DAILY Hold Instructions: hold for one month or unless directed by Dr Caceres Discontinued phentermine 37.5 mg capsule 37.5 mg PO DAILY Qty: 4 0RF Rx Instructions: must administer 30 minutes before or 1-2 hours after breakfast cholecalciferol (vitamin D3) 25 mcg (1,000 unit) capsule 1 cap PO DAILY Discharge Orders: Discharge Order (Routine); Ordered 08/20/22 Ordered By: Jean-Pierre Caceres Activity on Discharge: No heavy lifting Stand Alone Forms: Patient Portal Discharge page Care Plan Goals: weight loss Health Concerns: morbid obesity Plan of Treatment: No tub baths, sex or returning to work until discussed at first post op appointment. No exercise, alcohol, tobacco or illegal drug use. Continue to use incentive spirometer hourly while awake. Walk in home for 5- 10 minutes every 2 hours during the first week. Follow all instructions in the bariatric handbook and call with any questions.Discharge Instructions 1. Please call your doctor or come back to the emergency room should any new symptoms arise. 2. You will receive a courtesy call from [facility] 24-48 hours after discharge. 3. Activity: abstain from alcohol, practice limited stair climbing, no bending, no driving, no exercise, no illicit substances, no lifting, no sex, no tub bath, no work. 4. Diet: continue as discussed with Dr. Caceres. 5. Dressing Change/Wound Care: Your incision is covered by clear bandages and guaze underneath. If the area is tender, you may apply an ice pack for short intervals (no more than 20 minutes on, followed by at least 20 minutes off). Do not apply heat. Do not use creams, lotions, or topical antibiotics unless instructed to do so by your surgeon. These can cause infection or allergic reaction. 6. Call your doctor if: - Your temperature exceeds 101.5 F - You experience excessive pain or swelling - You have an unexpected reaction to medication - You have excessive bleeding - You experience continued vomiting/nausea - Your incision begins to separate - Your incision shows signs of infection such as increased redness, swelling, excessive pain, heat, or drainage (light blood or clear fluid is normal) 7. General instructions: No lifting greater than 5 lbs for the next 4 weeks[address] within 24 hours of taking narcotic pain medications. If you do not move your bowels in the next 2 days, please take milk of magnesia over the counter. Please follow the post op diet and do not advance your diet until you are seen in the office in about 2 weeks. Please walk around your home every hour or two to prevent blood clots from forming in your legs. You do not need to wake from sleeping to walk. Please sleep in a bed or couch to prevent kinking at the hips and knees. Please take your incentive spirometer (your lung food aide) home with you and use it for the next few days to prevent pneumonias. You may shower, no hot tubs, baths or swimming pools. Please call the office with any questions or concerns such as increasing abdominal pain, fever, chills, shortness of breath, chest pain, leg pain or swelling, or redness or drainage from your incisions. Please stay on stage 3 diet which includes sugar free clear liquids such as ice pops and jello and broth and crystal light. Avoid all carbonation. Please drink 3 protein shakes with at least 25-30 grams of protein daily or 3 of the Celebrate 4:1 shakes which can be purchased in our office. The Celebrate shakes have all of the bariatric vitamins you need if you consume these shakes. If you are drinking other protein shakes, you will need to purchase the Celebrate multivitamins and calcium that we provide in the office (they will provide all the vitamins you need). Please make sure you are consuming at least 40-60 ounces of water in addition to your 3 protein shakes daily. Do not hesitate to contact the office with any questions at . The patient's medical history has been reviewed and they are considered low risk for post op DVT and therefore DVT prophylaxis is not considered necessary. Travel after surgery was reviewed. The patient has not disclosed any travel plans during the first 30 days after surgery and they have been advised that within the first 30 days after surgery any bus, plane, train or car travel over 2 hours in duration is contraindicated due to the possibility of developing blood clots from immobility. Any travel, needs to include periods of ambulation of 10 minutes in duration every 2 hours.? The patient was instructed to discuss any plans for travel during this period with their bariatric surgeon. Assessment: stable s/p laparoscopic sleeve gastrectomy
[2022-08-19 14:15] LABS: Hematocrit 42.3 % (37.0-47.0)
[2022-08-19 14:27] LABS: Anion Gap 16 (12-20); Blood Urea Nitrogen 7 mg/dL (9-16); Calcium 8.7 mg/dL (8.4-10.2); Carbon Dioxide 23 mmol/L (22-29); Chloride 105 mmol/L (96-108); Creatinine Clr Calc Pharmacy 158.4; Estimated Glomerular Filt Rate > 60; Glucose Random 141 mg/dL (60-115); Potassium 4.3 mmol/L (3.3-5.1); Sodium 140 mmol/L (135-145)
[2022-08-19] MEDS: ondansetron HCL 4 MG/2 ML VIAL IVPUSH (16:25)
[2022-08-19] MEDS: ceFAZolin Sodium/Dextrose,Iso 2 GM/50 ML PIGGYBACK IV (16:25)
[2022-08-19 16:30] LABS: Glucose, Whole Blood 155 mg/dL (60-115)
[2022-08-19] MEDS: Metoclopramide HCl 10 MG/2 ML VIAL IVPUSH (16:55)
[2022-08-19] MEDS: Acetaminophen 1,000 MG/100 ML PIGGYBACK 16.7 MG IV ×2 (17:25→22:43)
--- NOTE | 2022-08-19 17:56 | PC.NURSE ---
pt vomited brown/green 25cc at 1545, pt given 4mg of zofran IVP. At 1645 pt wanted to walk to bathroom, on way to bathroom patient vomited on floor. Sudarshan OSHEA made aware. reglan 10mg given. pt is now resting, no complaint of nausea.
--- NOTE | 2022-08-19 17:58 | PC.NURSE ---
pt POC glucose was 155, per sliding scale order pt was to recieve 2 units of humalog. pt refused humalog stating she no longer took humalog because it would lower her blood sugar too much and she would not feel right. Rowan Wilcox made aware. telephone order to DC sliding scale.
[2022-08-19 20:35] LABS: Glucose, Whole Blood 183 mg/dL (60-115)
[2022-08-19] MEDS: Famotidine/PF 20 MG/2 ML VIAL IVPUSH (20:59)
[2022-08-19] MEDS: 0.9 % Sodium Chloride Flush 3 ML SYRINGE IVFLUSH (21:00)
[2022-08-19] MEDS: LORazepam 2 MG/ML VIAL 0.5 MG IVPUSH (22:42)
[2022-08-20] MEDS: ondansetron HCL 4 MG/2 ML VIAL IVPUSH ×2 (00:25→07:43)
[2022-08-20 03:50] VITALS: BP 124/73; PULSE 56; RESP 18; TEMP 36.8; O2SAT 95
[2022-08-20] MEDS: Acetaminophen 1,000 MG/100 ML PIGGYBACK 16.7 MG IV (04:34)
[2022-08-20 06:11] LABS: MANUAL DIFF FLAG NO
[2022-08-20 06:18] LABS: Basophils Percent Auto 0.1 % (0-2); Hematocrit 41.8 % (37.0-47.0); Hemoglobin 13.9 g/dl (12.0-16.0); Imm Gran Abs Auto 0.05 X10*3/uL (0.00-0.03); Imm Gran Pct Auto 0.4 % (0.0-0.4); Lymphocytes Absolute Auto 1.6 X10*3/uL (1.2-4.9); Lymphocytes Percent Auto 11.8 % (20-40); Mean Corpuscular HGB Conc 33.3 g/dl (31.0-35.0); Mean Corpuscular Hemoglobin 26.8 pg (27.0-33.0); Mean Corpuscular Volume 80.7 fL (80.0-98.0); Mean Platelet Volume 12.8 fL (9.4-12.3); Monocytes Absolute Auto 0.7 X10*3/uL (0.1-1.2); Monocytes Percent Auto 5.4 % (2-11); Neutrophils Absolute Auto 11.1 x10*3/uL (2.0-8.3); Neutrophils Percent Auto 82.3 % (45-73); Platelet Count 207 X10*3/uL (160-400); Red Blood Count 5.18 X10*6/uL (4.20-5.50); Red Cell Distribution Width 14.3 % (11.0-16.0); White Blood Count 13.5 X10*3/uL (4.8-10.8)
[2022-08-20 06:34] LABS: Anion Gap 17 (12-20); Blood Urea Nitrogen 6 mg/dL (9-16); Calcium 8.9 mg/dL (8.4-10.2); Carbon Dioxide 21 mmol/L (22-29); Chloride 104 mmol/L (96-108); Creatinine Clr Calc Pharmacy 172.1; Estimated Glomerular Filt Rate > 60; Glucose Random 119 mg/dL (60-115); Potassium 4.2 mmol/L (3.3-5.1); Sodium 138 mmol/L (135-145)
[2022-08-20] MEDS: Famotidine/PF 20 MG/2 ML VIAL IVPUSH (07:43)
[2022-08-20 08:00] VITALS: BP 128/81; PULSE 57; RESP 18; TEMP 36.8; O2SAT 97
--- NOTE | 2022-08-20 09:15 | MHC.CM.PN ---
pt dcd home no skilled services ordered by
[2022-08-20] MEDS: Lactated Ringers 1,000 ML 100 ML IVCONT (09:27)
[2022-08-20 10:12] LABS: Glucose, Whole Blood 121 mg/dL (60-115)
--- NOTE | 2022-08-20 12:29 | HO.POSTANES ---
Post Anesthesia Evaluation Post Anesthesia Evaluation Vital Signs: Vital Signs Temp Pulse Resp BP Pulse Ox O2 Del Method 08/20/22 08:00 98.2 F 57 18 128/81 97 Room Air 08/20/22 03:50 98.2 F 56 18 124/73 95 Room Air Anesthesia: General Endotracheal-GETA Mental Status: Awake Pain Control: Satisfactory Nausea/Vomiting: None Hydration: Adequate Anesthesia-Related Issues: No Anes. Related Issues
== END 2022-08-20 10:19 | disposition home or self-care (01) | DRG 403 ==
LOC: HO.SSSA 13:42 → HO.S3 14:16
PROVIDERS: Anesthesiology; Physician Assistant Surgical; Admitting Provider Surgery; PCP Physician Assistant Medical; Visit Provider Surgery
PROC: 0DB64Z3 Excision of Stomach, Percutaneous Endoscopic Approach, Vertical (ICD-10-PCS; CPT 43845; principal; 2022-08-19 10:10)
DX: E66.01 Morbid (severe) obesity due to excess calories (principal); Q43.3 Congenital malformations of intestinal fixation; K76.0 Fatty (change of) liver, not elsewhere classified; E28.2 Polycystic ovarian syndrome; E78.5 Hyperlipidemia, unspecified; Z68.41 Body mass index [BMI] 40.0-44.9, adult; F32.A Depression, unspecified; E11.9 Type 2 diabetes mellitus without complications; J45.909 Unspecified asthma, uncomplicated; F41.9 Anxiety disorder, unspecified; Z20.822 Contact with and (suspected) exposure to COVID-19; Z88.8 Allergy status to other drugs, medicaments and biological substances; Z79.51 Long term (current) use of inhaled steroids; Z79.84 Long term (current) use of oral hypoglycemic drugs; Z79.3 Long term (current) use of hormonal contraceptives; Z79.899 Other long term (current) drug therapy
CPT/HCPCS: 36415; 80048; 80053; 80061; 82947; 83036; 83525; 84443; 84702; 85014; 85018; 85025; 85610; 85730; 86140; 86850; 86900; 86901; 87635; 88305; 88307; 88342; 93005; A4649; C9088; J0131; J0690; J1100; J1170; J2060; J2250; J2405; J2550; J2765; J3010

== ENCOUNTER → 2022-08-24 10:40 | Outpatient (BNVA) | payer MEDICAID, SELFPAY | PROVIDERS: PCP Physician Assistant Medical; Referring Provider Physician Assistant Medical; Visit Provider Physician Assistant Surgical ==

== ENCOUNTER → 2022-09-10 08:29 | Outpatient (BNVA) | payer MEDICAID, SELFPAY | PROVIDERS: PCP Physician Assistant Medical; Visit Provider Physician Assistant ==

== ENCOUNTER → 2022-09-24 08:38 | Outpatient (BNVA) | payer MEDICAID, SELFPAY | PROVIDERS: PCP Physician Assistant Medical; Visit Provider Physician Assistant | DX: E66.01 Morbid (severe) obesity due to excess calories (principal); E28.2 Polycystic ovarian syndrome; Z68.41 Body mass index [BMI] 40.0-44.9, adult; Z90.3 Acquired absence of stomach [part of] | CPT/HCPCS: 99212 ==

== ENCOUNTER → 2022-11-24 10:54 | Outpatient (BNVA) | payer MEDICAID, SELFPAY | PROVIDERS: PCP Physician Assistant Medical; Visit Provider Physician Assistant | DX: E66.9 Obesity, unspecified (principal); Z98.84 Bariatric surgery status; Z68.34 Body mass index [BMI] 34.0-34.9, adult | CPT/HCPCS: 99212 ==

== ENCOUNTER → 2022-12-22 21:17 | Outpatient (BNVA) | payer OTHER, MEDICAID, SELFPAY | PROVIDERS: PCP Physician Assistant Medical; Visit Provider Counselor Mental Health ==

== ENCOUNTER → 2022-12-30 16:29 | Outpatient (BNVA) | payer MEDICAID, SELFPAY | PROVIDERS: PCP Physician Assistant Medical; Visit Provider Physician Assistant ==

== ENCOUNTER 2022-12-31 11:16 | Outpatient (AMB) | payer MEDICAID, SELFPAY ==
--- NOTE | 2022-12-31 10:56 | MHC.OFFVISWM ---
Intake Intake Visit Reasons: VIDEO PO LSG 08/19/22 Allergies Seasonal Allergies Allergy (Intermediate, Verified 11/24/22 10:58) Sneezing prednisone Adverse Reaction (Severe, Verified 11/24/22 10:58) Abdominal Pain Dust Mite Mixed Allergen Ext Allergy (Severe, Uncoded 08/04/22 09:09) Sneezing shellfish, iodine, cockroaches Allergy (Unknown, Uncoded 08/04/22 09:09) Itching Medication List - Last Reconciled 12/31/22 by Rowan Wilcox PA-C albuterol sulfate 90 mcg/actuation (ProAir HFA) 2 puffs inhalation Q6H PRN atorvastatin 1 tab PO DAILY cetirizine 10 mg PO DAILY fluticasone propionate 100 mcg/actuation (Flovent Diskus) 1 inh inhalation Q12H inulin (Fiber Gummies) 2 grams PO BID norgestimate-ethinyl estradiol 0.25-35 mg-mcg (Estarylla) 1 tab PO DAILY HPI HPI Comments History of Present Illness Details Pt is now 4.5 sarmad hs s/p LSG. 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 4 lbs os 34%.? Ex ercise - alternate s ST and cardio 7d /week. Cardio 450 - 500 calories bur katiana Meal plan : t wo 8 oz 4:1 2 scoo ps with UAM 2pm - Ispopure with waat ter dinner 1 oz pr otein and 1 oz veg etables ? PFSH Medical History Anxiety Asthma Depression Hyperlipidemia Morbid obesity Non-insulin dependent type 2 diabetes mellitus PCOS (polycystic ovarian syndrome) Snores Surgical History No pertinent past surgical history Family History Mother Hypertension Father Hypertension Social History Household Members: Family Housing: House Are you a primary acute care clinical nurse specialist to a significant other at home: No Do you presently have visiting nurse or other home services: No Alcohol intake: former Patient Tobacco Use Status: Never used Tobacco Substance Use Type: Marijuana service: No Assessment & Plan Assessment & Plan (1) S/P laparoscopic sleeve gastrectomy: Code(s): Z98.84 - Bariatric surgery status Plan: 4.5 months with excellent weight loss and exercise plans. Involved in our post op groups and finds them very helpful. Will make sure to burn 2000 kcals per week varying from 400 - 600 burned per day and [address] with TBP challenges. Meal plan - only change is to increase dinner meal to 2 oz and 2 oz. Next appt at 6 months with labs. Patient is still morbidly obese and is not considered stable at this time. I spent 18 minutes in total speaking with the patient via video conference counseling , reviewing records and charting in patients chart. . Medications: Discontinued ondansetron HCl ONLY use if you have nausea as needed 4 mg PO Q12H 20 tabs 0RF nausea and vomiting Telehealth Telehealth Location of provider rendering services: practice address Location of patient: address on file Patient Identification confirmed using: Name, : Yes Telehealth method: video Patient verbally consented to treatment: Yes Patient verbally consented to billing insurance company: Yes Patient informed of any privacy concerns related to visit: Yes Coding Level of Care Code Tele Est Pt Level 4 (67207) Diagnoses S/P laparoscopic sleeve gastrectomy Z98.84
== END 2022-12-31 11:19 | disposition home or self-care (01) ==
LOC: HO.HBS 11:16
PROVIDERS: PCP Physician Assistant Medical; Visit Provider Physician Assistant
DX: E66.01 Morbid (severe) obesity due to excess calories (principal); Z68.34 Body mass index [BMI] 34.0-34.9, adult; Z90.3 Acquired absence of stomach [part of]; Z98.84 Bariatric surgery status
CPT/HCPCS: 99213

== ENCOUNTER → 2022-12-31 11:16 | Outpatient (BNVA) | payer MEDICAID, SELFPAY | PROVIDERS: PCP Physician Assistant Medical; Visit Provider Physician Assistant | DX: E66.01 Morbid (severe) obesity due to excess calories (principal); Z90.3 Acquired absence of stomach [part of] | CPT/HCPCS: 99213 ==

== ENCOUNTER → 2023-01-05 17:00 | Outpatient (BNVA) | payer OTHER, MEDICAID, SELFPAY | PROVIDERS: PCP Physician Assistant Medical; Visit Provider Counselor Mental Health ==

== ENCOUNTER → 2023-01-05 17:00 | Outpatient (BNVA) | payer OTHER, MEDICAID, SELFPAY | PROVIDERS: PCP Physician Assistant Medical; Visit Provider Counselor Mental Health ==

== ENCOUNTER 2023-02-23 12:57 | Outpatient (AMB) | payer OTHER, SELFPAY ==
--- NOTE | 2023-02-23 12:14 | A.OFFVIS_ITS ---
Intake VS Expanded 02/23/23 13:06 BP 121/65 Blood Pressure Location Rt brachial Blood Pressure Position Sitting Pulse 56 Pulse Source Pulse Oximeter Temp 97.3 F Temperature Source Temporal Artery Scan Pulse Oximetry 98 Oxygen Delivery Method Room Air Height 5 ft 7 in Weight 203 lb 6.4 oz BMI 31.9 Body Fat % 32.2 Body Fat Mass 65.4 Fat Free Mass 137.8 Visceral Fat Rating 5.0 Body Water % 48.6 Body Water Mass 98.8 Muscle Mass/Score 131.0 Basal Metabolic Rate/Score 1,890 Intake Visit Reasons: (OV) PO LSG 08/19/22 Allergies Seasonal Allergies Allergy (Intermediate, Verified 02/23/23 13:03) Sneezing prednisone Adverse Reaction (Severe, Verified 02/23/23 13:03) Abdominal Pain Dust Mite Mixed Allergen Ext Allergy (Severe, Uncoded 02/23/23 13:03) Sneezing shellfish, iodine, cockroaches Allergy (Unknown, Uncoded 02/23/23 13:03) Itching Medication List - Last Reconciled 02/23/23 by Rowan Wilcox PA-C albuterol sulfate 90 mcg/actuation (ProAir HFA) 2 puffs inhalation Q6H PRN atorvastatin 1 tab PO DAILY calcium citrate-vitamin D3 315 mg-5 mcg (200 unit) (Calcium Citrate + D) 1 tab PO BID cetirizine 10 mg PO DAILY fluticasone propionate 100 mcg/actuation (Flovent Diskus) 1 inh inhalation Q12H atfqdivwbmqg-zou-wbid-FA-vit K 45 mg iron- 800 mcg-120 mcg (Bariatric Multivitamins) caps PO norgestimate-ethinyl estradiol 0.25-35 mg-mcg (Estarylla) 1 tab PO DAILY HPI HPI Comments History of Present Illness Details Now 6 months s/p LSG, 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 No reflux, emesis or nausea. Has not adhering to meal plan. Will now restart therapy groups - back on her insurance. Meal plan: 9am - Likes the PP bar 12 pm - Isopure shake 20 grams - over 1 - 1.5 hours 2 pm - 5pm - second shake - skips this sometimes, and snacks on other things. 6- 7pm - 2 oz each of protien and vegeta ble Most day s 1 shake , 2 bars, and one meal Exercise - TBP 3d/wk 30 - 45 minutes and cardio machine. Post op complications: none PAULETTE:never DM: resolved HTN: never Hyperlipidemia: still on meds GERD: 0 Satisfaction with present condition - satisfied [facility] Medical History Anxiety Asthma Depression Hyperlipidemia Morbid obesity Non-insulin dependent type 2 diabetes mellitus PCOS (polycystic ovarian syndrome) Snores Surgical History No pertinent past surgical history Family History Mother Hypertension Father Hypertension Social History Household Members: Family Housing: House Are you a primary director of career resources to a significant other at home: No Do you presently have visiting nurse or other home services: No Alcohol intake: former Patient Tobacco Use Status: Never used Tobacco Substance Use Type: Marijuana service: No Physical Exam Vital Signs: Last Vital Signs Temp 97.3 F 02/23/23 13:06 Pulse 56 02/23/23 13:06 BP 121/65 02/23/23 13:06 Pulse Ox 98 02/23/23 13:06 Oxygen Delivery Method Room Air 02/23/23 13:06 BMI result Body Mass Index 31.9 Const General: cooperative, healthy appearing and comfortable GI Inspection: Yes incision (all completely healed) and Yes Abdominal panniculus pr esent Palpation (GI): Soft to palpation, nontender, no hernias and no masses Assessment & Plan Assessment & Plan (1) Obesity: Code(s): E66.9 - Obesity, unspecified Plan: Pt has lost 111 lbs so far and is active in the post op groups which she finds very helpful. She is working on making lasting changes with healthy choices and being positive about her responses and reactions. She knows what to do - will stop skipping her afternoon second shake - she understands that when she does she makes unhealthy choices later in the day. Exercise - she will change her workouts now to include going to the gym and burning 2000 calories per week with cardio and also ST[facility] Mckenzie palenciat in 6 weeks with Korina, then with me at 9 months post op. Post op labs ordered today. (2) S/P laparoscopic sleeve gastrectomy: Code(s): Z98.84 - Bariatric surgery status Orders: Orders IRON PROFILE Today E66.9 - Obesity, unspecified, Z98.84 - Bariatric surgery status Comprehensive Met. Panel Today E66.9 - Obesity, unspecified, Z98.84 - Bariatric surgery status Vitamin B1 Today E66.9 - Obesity, unspecified, Z98.84 - Bariatric surgery status Vitamin A Today E66.9 - Obesity, unspecified, Z98.84 - Bariatric surgery status Ferritin Today E66.9 - Obesity, unspecified, Z98.84 - Bariatric surgery status Vitamin D 25-OH Total Today E66.9 - Obesity, unspecified, Z98.84 - Bariatric surgery status Insulin Today E66.9 - Obesity, unspecified, Z98.84 - Bariatric surgery status Lipid Panel Today E66.9 - Obesity, unspecified, Z98.84 - Bariatric surgery status Complete Blood Count Auto Diff Today E66.9 - Obesity, unspecified, Z98.84 - Bariatric surgery status Vitamin B12 and Folate Today E66.9 - Obesity, unspecified, Z98.84 - Bariatric surgery status Zinc Today E66.9 - Obesity, unspecified, Z98.84 - Bariatric surgery status C Reactive Protein Today E66.9 - Obesity, unspecified, Z98.84 - Bariatric surgery status PTHI Today E66.9 - Obesity, unspecified, Z98.84 - Bariatric surgery status TSH reflex Free T4 Today E66.9 - Obesity, unspecified, Z98.84 - Bariatric surgery status Hemoglobin A1c Today E66.9 - Obesity, unspecified, Z98.84 - Bariatric surgery status Medications: Refilled calcium citrate-vitamin D3 315 mg-5 mcg (200 unit) (Calcium Citrate + D) 1 tab PO BID 60 tabs 11RF Coding Level of Care Code Est Pt Level 4 (83216) Diagnoses Obesity E66.9 S/P laparoscopic sleeve gastrectomy Z98.84
[2023-02-23 13:06] VITALS: BP 121/65; PULSE 56; TEMP 36.3; O2SAT 98; BMI 31.9
== END 2023-02-23 14:20 | disposition home or self-care (01) ==
PROVIDERS: PCP Physician Assistant Medical; Visit Provider Physician Assistant
DX: E66.9 Obesity, unspecified (principal); Z68.31 Body mass index [BMI] 31.0-31.9, adult; Z90.3 Acquired absence of stomach [part of]; Z98.84 Bariatric surgery status
CPT/HCPCS: 99214

== ENCOUNTER → 2023-02-23 12:57 | Outpatient (BNVA) | payer OTHER, SELFPAY | PROVIDERS: PCP Physician Assistant Medical; Visit Provider Physician Assistant ==

== ENCOUNTER 2023-03-02 09:33 | Outpatient (REF) | payer OTHER, SELFPAY ==
[2023-03-03 09:39] LABS: Calcium (PTHI) 8.7 mg/dL (8.6-10.2); PTHI 43 pg/mL (16-77)
[2023-03-05 00:24] LABS: Zinc 72 mcg/dL (60-130)
[2023-03-07 00:23] LABS: Vitamin B1 13 nmol/L (8-30)
[2023-03-08 10:43] LABS: Vitamin A 56 mcg/dL (38-98)
== END 2023-03-02 09:34 | disposition home or self-care (01) ==
LOC: HO.LAB 09:33
PROVIDERS: PCP Physician Assistant Medical; Visit Provider Physician Assistant
DX: E66.9 Obesity, unspecified (principal); Z98.84 Bariatric surgery status
CPT/HCPCS: 36415; 80053; 80061; 82306; 82607; 82728; 82746; 83036; 83525; 83540; 83970; 84425; 84443; 84590; 84630; 85025; 86140

== ENCOUNTER 2023-07-18 09:30 | Outpatient (AMB) | payer OTHER, SELFPAY ==
--- NOTE | 2023-07-18 09:36 | A.OFFVIS_ITS ---
Intake VS Expanded 07/18/23 09:39 Height 5 ft 7 in Weight 217 lb 8 oz BMI 34.1 Intake Visit Reasons: VIDEO PO LSG 08/19/22 Allergies Seasonal Allergies Allergy (Intermediate, Verified 02/23/23 13:03) Sneezing prednisone Adverse Reaction (Severe, Verified 02/23/23 13:03) Abdominal Pain Dust Mite Mixed Allergen Ext Allergy (Severe, Uncoded 02/23/23 13:03) Sneezing shellfish, iodine, cockroaches Allergy (Unknown, Uncoded 02/23/23 13:03) Itching Medication List - Last Reconciled 07/18/23 by Rowan Wilcox PA-C albuterol sulfate 90 mcg/actuation (ProAir HFA) 2 puffs inhalation Q6H PRN calcium citrate-vitamin D3 315 mg-5 mcg (200 unit) (Calcium Citrate + D) 1 tab PO BID cetirizine 10 mg PO DAILY fluticasone propionate 100 mcg/actuation (Flovent Diskus) 1 inh inhalation Q12H sioqeabyrnvi-puz-holx-FA-vit K 45 mg iron- 800 mcg-120 mcg (Bariatric Multivitamins) caps PO norgestimate-ethinyl estradiol 0.25-35 mg-mcg (Estarylla) 1 tab PO DAILY HPI HPI Comments History of Present Illness Details 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 Pt was last seen in Feb and was having decrease in progress, appt scheduled with Korina and therapy groups for more support, lost her inusrance and now has it again. She has gained 14 lbs since February. Meal plan now - wakes at 6-7 am 7am - coffee with sweetened creamer 12pm - overnight oats with fruit, 5 oz i n total, 2:30 pm - PP bar 5 pm - 20 gram shake 8pm - 4- oz chicken or beef, 5 -6 oz let tuce and tomato with avocado and hot sauce, low carb wrap. water. Eats in 10 - 15 minutes until she feels full. Muches on chips, cookies after dinner. - may have a whole second meal Exercise - cardio 3 d/wk - elliptical for 280 calories. TBP - 2-3 times per week. Post op complications: none PAULETTE: none DM: resolved HTN: none Hyperlipidemia: resolved GERD: 0 Satisfaction with present condition - satisfied [facility] Medical History Anxiety Asthma Depression Hyperlipidemia Morbid obesity Non-insulin dependent type 2 diabetes mellitus PCOS (polycystic ovarian syndrome) Snores Surgical History No pertinent past surgical history Family History Mother Hypertension Father Hypertension Social History Household Members: Family Housing: House Are you a primary neurocritical care physician to a significant other at home: No Do you presently have visiting nurse or other home services: No Alcohol intake: former Patient Tobacco Use Status: Never used Tobacco Substance Use Type: Marijuana service: No Physical Exam GI Inspection: Yes incision (completely healed) and Yes obesity Assessment & Plan Assessment & Plan (1) Obesity: Code(s): E66.9 - Obesity, unspecified Plan: 1 year post op, labs done Feb 2023 Will not order then again yet. Needs to get back on track. Will reach out to [facility] for group therapy. Will have appt with Korina in 3-4 weeks. Needs to review all her original material Needs 100 grams protein per day coffee - UAM 10 am - shake 2pm - bar 5pm - shake 8pm - 6 forks each of protein and vegetable Exercise - ellitpical - 2,000 call week. TBP also. Will text me weekly during the month of July. Next appt with PA in 3 months. Patient is still obese and is not considered stable at this time. I spent 30 minutes in total speaking with the patient via video conference counseling , reviewing records and charting in patients chart. . (2) S/P laparoscopic sleeve gastrectomy: Code(s): Z98.84 - Bariatric surgery status Plan: see above Medications: Refilled calcium citrate-vitamin D3 315 mg-5 mcg (200 unit) (Calcium Citrate + D) 1 tab PO BID 180 tabs 3RF Telehealth Telehealth Location of provider rendering services: practice address Location of patient: address on file Patient Identification confirmed using: Name, : Yes Telehealth method: video Patient verbally consented to treatment: Yes Patient verbally consented to billing insurance company: Yes Patient informed of any privacy concerns related to visit: Yes Coding Level of Care Code Tele Est Pt Level 4 (37942) Diagnoses Obesity E66.9 S/P laparoscopic sleeve gastrectomy Z98.84
[2023-07-18 09:39] VITALS: BMI 34.1
== END 2023-07-18 10:10 | disposition home or self-care (01) ==
LOC: HO.HBS 09:39
PROVIDERS: PCP Physician Assistant Medical; Visit Provider Physician Assistant
DX: E66.9 Obesity, unspecified (principal); Z98.84 Bariatric surgery status
CPT/HCPCS: 99214

== ENCOUNTER → 2023-07-18 09:30 | Outpatient (BNVA) | payer OTHER, SELFPAY | PROVIDERS: PCP Physician Assistant Medical; Visit Provider Physician Assistant ==

== ENCOUNTER 2023-08-08 09:33 | Outpatient (AMB) | payer OTHER, SELFPAY ==
--- NOTE | 2023-08-08 09:22 | MHC.AMNUTRGE ---
Intake Intake Visit Reasons: VIDEO PO LSG 08/19/22 [employer]obile [employer] Required: No Allergies Seasonal Allergies Allergy (Intermediate, Verified 02/23/23 13:03) Sneezing prednisone Adverse Reaction (Severe, Verified 02/23/23 13:03) Abdominal Pain Dust Mite Mixed Allergen Ext Allergy (Severe, Uncoded 02/23/23 13:03) Sneezing shellfish, iodine, cockroaches Allergy (Unknown, Uncoded 02/23/23 13:03) Itching HPI Nutrition Presentation Details LSG DOS 08/19/22 current weit 217# Reason for consult elevated BMI Diet Assmnt Details Using the Isopure infusion , really likes, doesn't really like the milk based shakes Is getting tired of doing so many bars and shakes , interested in adding in more food based meals 6 forks of protein, 6 forks of veg - honestly I'm not measuring Exercise - cardio 3 d/wk - elliptical for 280 calories. TBP - 2-3 times per week. Dietary counseling reduction Diagnosis Nutrition problem #1 overweight/obesity As related to (etiology) #1 excess energy intake and physical inactivity As evidenced by (sign/symptom) #1 high BMI Monitoring/Goals Nutrition problem monitoring total energy intake, level of knowledge/skill, total PRO intake, total CHO intake and weight Outcome progress progressing Learning/Education Readiness to learn excellent Stages of change action Most Recent Diabetes Results: Cholesterol 129 mg/dL (<200) 03/02/23 HDL Cholesterol 47 mg/dL (>40) 03/02/23 Triglycerides 73 mg/dL (<150) 03/02/23 Creatinine 0.68 mg/dL (0.5-1.4) 03/02/23 Blood Urea Nitrogen 8 mg/dL (9-16) L 03/02/23 Sodium 143 mmol/L (135-145) 03/02/23 Potassium 3.7 mmol/L (3.3-5.1) 03/02/23 Chloride 107 mmol/L (96-108) 03/02/23 Carbon Dioxide 26 mmol/L (22-29) 03/02/23 Calcium 9.2 mg/dL (8.4-10.2) 03/02/23 AST 14 U/L (5-31) 03/02/23 ALT 12 U/L (0-31) 03/02/23 Total Protein 7.3 g/dL (6.5-8.0) 03/02/23 Albumin 3.8 g/dL (3.5-5.0) 03/02/23 PFSH Medical History Anxiety Asthma Depression Hyperlipidemia Morbid obesity Non-insulin dependent type 2 diabetes mellitus PCOS (polycystic ovarian syndrome) Snores Surgical History No pertinent past surgical history Family History Mother Hypertension Father Hypertension Social History Household Members: Family Housing: House Are you a primary health care administrator to a significant other at home: No Do you presently have visiting nurse or other home services: No Alcohol intake: former Patient Tobacco Use Status: Never used Tobacco Substance Use Type: Marijuana service: No Assessment & Plan Assessment & Plan (1) Obesity (BMI 30-39.9): Code(s): E66.9 - Obesity, unspecified Plan Pt's choice to follow the below, then will follow up with DAYO Jiménez breakfast : 1.5 scoops isopure = 30g protein lunch: 2-3oz protein and 2-3oz veg (or 6 forks of each) 1/2 protein bar dinner: same as lunch 1/2 bar Telehealth Telehealth Location of provider rendering services: practice address Location of patient: address on file Patient Identification confirmed using: Name, : Yes Telehealth method: voice only Patient verbally consented to treatment: Yes Patient verbally consented to billing insurance company: Yes Patient informed of any privacy concerns related to visit: Yes Minutes spent on Phone/Video with Pt.: 30 Coding Level of Care Code Nutr Indiv Subseq (33066) Diagnoses Obesity (BMI 30-39.9) E66.9 Time Spent (min) 30
== END 2023-08-08 11:00 | disposition home or self-care (01) ==
LOC: HO.HBS 09:33
PROVIDERS: PCP Physician Assistant Medical; Visit Provider Dietitian, Registered
DX: E66.9 Obesity, unspecified (principal)

== ENCOUNTER → 2023-08-08 09:33 | Outpatient (BNVA) | payer OTHER, SELFPAY | PROVIDERS: PCP Physician Assistant Medical; Visit Provider Dietitian, Registered | DX: E66.9 Obesity, unspecified (principal); E11.9 Type 2 diabetes mellitus without complications; Z98.84 Bariatric surgery status; Z71.3 Dietary counseling and surveillance | CPT/HCPCS: 97803 ==

== ENCOUNTER 2024-04-05 13:15 | Outpatient (REF) | payer OTHER, SELFPAY ==
[2024-04-05 17:17] LABS: Influenza A PCR NEGATIVE (Negative); Influenza B PCR NEGATIVE (Negative); Resp Syncy Virus RNA Qual PCR NEGATIVE (Negative); SARS COV2 PCR INHOUSE NEGATIVE (Negative)
== END 2024-04-05 13:16 | disposition home or self-care (01) ==
LOC: HO.LNP 13:15
PROVIDERS: PCP Physician Assistant Medical; Visit Provider Registered Nurse
DX: J06.9 Acute upper respiratory infection, unspecified (principal)
CPT/HCPCS: 0241U

== ENCOUNTER 2024-04-05 13:15 | Outpatient (AMB) | payer OTHER, SELFPAY ==
[2024-04-05 13:22] VITALS: BP 118/64; PULSE 79; TEMP 36.9; O2SAT 98
--- NOTE | 2024-04-05 13:22 | AM.OFFWIN_ITS ---
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, chills,body ache,no appetite,sob Intake Note: pt is here for cough, chills, body ache and no appetite Patient Tobacco Use Status: Never used Tobacco Allergies Seasonal Allergies Allergy (Intermediate, Verified 04/05/24 13:22) Sneezing prednisone Adverse Reaction (Severe, Verified 04/05/24 13:22) Abdominal Pain Dust Mite Mixed Allergen Ext Allergy (Severe, Uncoded 02/23/23 13:03) Sneezing shellfish, iodine, cockroaches Allergy (Unknown, Uncoded 02/23/23 13:03) Itching Do you need a note to return to daycare/school/sports/work: No HPI RN BABY-cough, chills,body ache,no appetite,sob HPI Details This note is constructed using voice recognition software. While every effort has been made to ensure accuracy, credit representative errors may have been included. The patient is a 28 year old female who presents to the clinic today with cough, chills, body ache, no appetite, and mild dyspnea since Tuesday. She also reports that she has had some elevated heart rate which does not seem to be resolving. She has been trying to treat her upper respiratory infection symptoms, but has not had improvement. She reports she has had pneumonia before and this feels similar. She reports that when she is coughing she is getting up brown tinged secretions last night. [facility] Medical History Anxiety Asthma Depression Hyperlipidemia Morbid obesity Non-insulin dependent type 2 diabetes mellitus PCOS (polycystic ovarian syndrome) Snores Surgical History No pertinent past surgical history Family History Mother Hypertension Father Hypertension Social History Household Members: Family Housing: House Are you a primary health care attorney to a significant other at home: No Do you presently have visiting nurse or other home services: No Alcohol intake: former Patient Tobacco Use Status: Never used Tobacco Substance Use Type: Marijuana service: No Review of Systems Const All systems reviewed & are unremarkable except as noted in HPI and below Physical Exam Vital Signs: Last Vital Signs Temp 98.5 F 04/05/24 13:22 Pulse 79 04/05/24 13:22 BP 118/64 04/05/24 13:22 Pulse Ox 98 04/05/24 13:22 Oxygen Delivery Method Room Air 04/05/24 13:22 Const General: cooperative, healthy appearing, comfortable and no acute distress Orientation/consciousness: patient oriented x3 Limitations: no limitations HEENT Head: Yes normal to inspection Ears: hearing grossly normal bilaterally, external ears normal and TM's normal bilaterally General nose exam: Normal external nose present, Normal nares present and No nasal discharge present Face and sinus: Yes normal facial exam and Yes sinuses nontender Mouth: Normal oral and palatal mucosa present and moist mucous membranes Throat: Yes tonsils normal, Yes uvula midline and Yes posterior oropharynx abno rmal (Erythema) Eyes General: appearance normal, both eyes and all related structures Neck Neck: Yes normal visual inspection Resp Effort & Inspection: normal respiratory effort, able to speak in complete sentences, Actively coughing, no respiratory distress, not tachypneic, no tripod positioning and no use of accessory muscles Auscultation: diminished lung sounds on the left in the lower lung medina Cardio Jugular venous distension: no JVD Rate: regular rate Rhythm: regular rhythm Heart sounds: S1 normal heart sound present, S2 normal heart sound present, no click, no gallops, no murmurs and no rubs Skin General skin exam: no rashes or lesions noted, elasticity normal and turgor normal Neuro General: patient oriented x3 Extrem General: Yes normal to inspection and Yes no clubbing, cyanosis or edema Assessment & Plan Assessment & Plan (1) Pneumonia: Code(s): J18.9 - Pneumonia, unspecified organism Qualifiers: Pneumonia type: due to unspecified organism Laterality: left Lung location: lower lobe of lung Qualified Code(s): J18.9 - Pneumonia, unspecified organism Plan: Viral swab obtained to rule out Covid, Flu, RSV based on symptoms. Advised mask wearing while symptomatic and quarantine per current CDC guidelines. Reviewed at home support methods including hydration, humidification, vix vapor rub, sinus rinse. Based on physical examination findings, we elected to treat with antibiotics. Advised follow up with worsening symptoms such as dyspnea at rest, which would require emergent evaluation. Plan See above for full details and plan. Orders: Orders SARS-CoV2/FLU/RSV Today J06.9 - Acute upper respiratory infection, unspecified Medications: New azithromycin For 250 mg dose pack: take 500 mg today (day 1), then 250 mg for 4 days (days 2-5) PO 6 tabs 0RF amoxicillin-pot clavulanate 875-125 mg 1 tab PO BID 7 days 14 tabs 0RF Coding Level of Care Code New Pt Level 3 (79702) Diagnoses Pneumonia of left lower lobe due to infectious organism J18.9 Pneumonia type: due to unspecified organism Laterality: left Lung location: lower lobe of lung
== END 2024-04-05 14:09 | disposition home or self-care (01) ==
PROVIDERS: PCP Physician Assistant Medical; Visit Provider Registered Nurse
DX: J18.9 Pneumonia, unspecified organism (principal)

== ENCOUNTER 2024-07-31 13:24 | Outpatient (AMB) | payer OTHER, SELFPAY ==
--- NOTE | 2024-07-31 13:33 | A.OFFVIS_ITS ---
VS Expanded 07/31/24 13:41 BP 136/72 Blood Pressure Location Rt brachial Blood Pressure Position Sitting Pulse 89 Pulse Source Pulse Oximeter Temp 98.2 F Temperature Source Temporal Artery Scan Pulse Oximetry 97 Oxygen Delivery Method Room Air Height 5 ft 7 in Weight 288 lb 12.8 oz BMI 45.2 Body Fat % 48.2 Body Fat Mass 139.2 Fat Free Mass 149.4 Visceral Fat Rating 14.0 Body Water % 37.2 Body Water Mass 107.4 Muscle Mass/Score 142.0 Basal Metabolic Rate/Score 2,167 Intake Visit Reasons: (OV) PO LSG 08/19/22 *GLP-1* Senior Project Manager Engineering Required: No Allergies Seasonal Allergies Allergy (Intermediate, Verified 04/05/24 13:22) Sneezing prednisone Adverse Reaction (Severe, Verified 04/05/24 13:22) Abdominal Pain Dust Mite Mixed Allergen Ext Allergy (Severe, Uncoded 02/23/23 13:03) Sneezing shellfish, iodine, cockroaches Allergy (Unknown, Uncoded 02/23/23 13:03) Itching Medication List - Last Reconciled 07/31/24 by DAYO Aguirre albuterol sulfate 90 mcg/actuation (ProAir HFA) 2 puffs inhalation Q6H PRN cetirizine 10 mg PO DAILY fluticasone propionate 100 mcg/actuation (Flovent Diskus) 1 inh inhalation Q12H loratadine 10 mg PO DAILY HPI Comments Details: This?a?28?yo female who is s/p LSG without hiatal hernia repair on?08/09/22. Presents for 2 year post op visit. She was last seen in the office in 08/10/2023 with a weight of 217. Weight today is 288.8 pounds, with a BMI of 45.2. There has been a 25.8 pound weight loss,(initial weight 314.6 pounds) since starting the program on 07/10/2021 reflecting a 8.2 % total body weight loss and a weight gain of 4.6 pounds since surgery (operative weight 284.2 pounds). No complaints of nausea, emesis, abdominal pain or reflux. Reports infrequent but normal bowel movements everyday. Present meal plan includes: nothing formal. 48 oz ? Exercise routine includes: none asked for discount to [facility] Medical History Snores Anxiety Depression Hyperlipidemia Non-insulin dependent type 2 diabetes mellitus PCOS (polycystic ovarian syndrome) Asthma Morbid obesity Surgical History No pertinent past surgical history Family History Mother Hypertension Father Hypertension Social History Household Members: Family Housing: House Are you a primary healthcare manager to a significant other at home: No Do you presently have visiting nurse or other home services: No Alcohol intake: former Patient Tobacco Use Status: Never used Tobacco Substance Use Type: Marijuana service: No Physical Exam Vital Signs: Last Vital Signs Temp 98.2 F 07/31/24 13:41 Pulse 89 07/31/24 13:41 BP 136/72 07/31/24 13:41 Pulse Ox 89 L 07/31/24 13:41 Oxygen Delivery Method Room Air 07/31/24 13:41 BMI result Body Mass Index 45.2 Const General: healthy appearing and no acute distress Resp Effort & Inspection: normal respiratory effort Auscultation: clear to auscultation bilaterally Cardio Rate: regular rate Rhythm: regular rhythm GI Auscultation: normal bowel sounds Extrem General: Yes normal to inspection Assessment & Plan Assessment & Plan (1) S/P laparoscopic sleeve gastrectomy: Code(s): Z98.84 - Bariatric surgery status Category: Surgical Plan: Check yearly follow-up labs. Discussed the importance of following a meal plan, consistency, discipline, purpose fullness and time. She additionally was enquiring about a discount to the [facility]. I have given her appropriate paperwork. She will join the gym. I again gave her my cell phone number so she may text me her weight weekly as well as with any questions or concerns. Return to the office 6 weeks. She has been given information regarding the right BMI slime and we will follow accordingly. She will contact me with any questions or concerns Orders: Orders Insulin Today E11.9 - Type 2 diabetes mellitus without complications, E55.9 - Vitamin D deficiency, unspecified, E78.5 - Hyperlipidemia, unspecified, K76.0 - Fatty (change of) liver, not elsewhere classified, Z98.84 - Bariatric surgery status C Reactive Protein Today E11.9 - Type 2 diabetes mellitus without complications, E55.9 - Vitamin D deficiency, unspecified, E78.5 - Hyperlipidemia, unspecified, K76.0 - Fatty (change of) liver, not elsewhere classified, Z98.84 - Bariatric surgery status Vitamin B1 Today E11.9 - Type 2 diabetes mellitus without complications, E55.9 - Vitamin D deficiency, unspecified, E78.5 - Hyperlipidemia, unspecified, K76.0 - Fatty (change of) liver, not elsewhere classified, Z98.84 - Bariatric surgery status Ferritin Today E11.9 - Type 2 diabetes mellitus without complications, E55.9 - Vitamin D deficiency, unspecified, E78.5 - Hyperlipidemia, unspecified, K76.0 - Fatty (change of) liver, not elsewhere classified, Z98.84 - Bariatric surgery status Hemoglobin A1c Today E11.9 - Type 2 diabetes mellitus without complications, E55.9 - Vitamin D deficiency, unspecified, E78.5 - Hyperlipidemia, unspecified, K76.0 - Fatty (change of) liver, not elsewhere classified, Z98.84 - Bariatric surgery status Complete Blood Count Auto Diff Today E11.9 - Type 2 diabetes mellitus without complications, E55.9 - Vitamin D deficiency, unspecified, E78.5 - Hyperlipidemia, unspecified, K76.0 - Fatty (change of) liver, not elsewhere classified, Z98.84 - Bariatric surgery status Lipid Panel Today E11.9 - Type 2 diabetes mellitus without complications, E55.9 - Vitamin D deficiency, unspecified, E78.5 - Hyperlipidemia, unspecified, K76.0 - Fatty (change of) liver, not elsewhere classified, Z98.84 - Bariatric surgery status IRON PROFILE Today E11.9 - Type 2 diabetes mellitus without complications, E55.9 - Vitamin D deficiency, unspecified, E78.5 - Hyperlipidemia, unspecified, K76.0 - Fatty (change of) liver, not elsewhere classified, Z98.84 - Bariatric surgery status Comprehensive Met. Panel Today E11.9 - Type 2 diabetes mellitus without complications, E55.9 - Vitamin D deficiency, unspecified, E78.5 - Hyperlipidemia, unspecified, K76.0 - Fatty (change of) liver, not elsewhere classified, Z98.84 - Bariatric surgery status Vitamin B12 and Folate Today E11.9 - Type 2 diabetes mellitus without complications, E55.9 - Vitamin D deficiency, unspecified, E78.5 - Hyper lipidemia, unspecified, K76.0 - Fatty (change of) liver, not elsewhere classified, Z98.84 - Bariatric surgery status Zinc Today E11.9 - Type 2 diabetes mellitus without complications, E55.9 - Vitamin D deficiency, unspecified, E78.5 - Hyperlipidemia, unspecified, K76.0 - Fatty (change of) liver, not elsewhere classified, Z98.84 - Bariatric surgery status Vitamin A Today E11.9 - Type 2 diabetes mellitus without complications, E55.9 - Vitamin D deficiency, unspecified, E78.5 - Hyperlipidemia, unspecified, K76.0 - Fatty (change of) liver, not elsewhere classified, Z98.84 - Bariatric surgery status TSH reflex Free T4 Today E11.9 - Type 2 diabetes mellitus without complications, E55.9 - Vitamin D deficiency, unspecified, E78.5 - Hyperlipidemia, unspecified, K76.0 - Fatty (change of) liver, not elsewhere classified, Z98.84 - Bariatric surgery status Vitamin D 25-OH Total Today E11.9 - Type 2 diabetes mellitus without complications, E55.9 - Vitamin D deficiency, unspecified, E78.5 - Hyperlipidemia, unspecified, K76.0 - Fatty (change of) liver, not elsewhere classified, Z98.84 - Bariatric surgery status
[2024-07-31 13:41] VITALS: BP 136/72; PULSE 89; TEMP 36.8; O2SAT 97; BMI 45.2
--- OUTSIDE RECORDS SUMMARY | 2024-07-31 16:15 | XMS_ITS | Patient Health Record ---
Author Organization [facility] Address [address] [place] [address] Care Team Providers Care Supervisor Claims Name Role Phone QUINCY THRASHER Unavailable [phone] REASON FOR REFERRAL No Information Encounters Encounter Location Date Provider Diagnosis [facility] [address] [facility] [address] [place] [address] 07/23/[address] [facility] [address] [facility] [address] [place] [address] 07/27/2024 QUINCY THRASHER PLAN OF TREATMENT No Information Insurance Providers Payer Name Payer Address Payer Phone Subscriber Number Group Number Insured Name Patient Relationship to Insured Coverage Start Date Coverage End Date [facility] [address] [place] [address] [id number] Irma Romero Self - patient is the insured
--- OUTSIDE RECORDS SUMMARY | 2024-07-31 16:15 | XMS_ITS | Encounter Summary ---
Author Organization [facility] [employer] Address [address] [place] [address] [address] [place] [address] Care Team Providers Care Staff Trainer Name Role Phone Unavailable Primary Care Provider Unavailabl e Encounter Details Date Type Department Care Team (Latest Contact Info) Description 04/10/2020 Abstract [facility] CONVERSIONS Dental, Provider, DDS Social History Tobacco Use Types Packs/Day Years Used Date Smoking Tobacco: Never Assessed Comments Unknown Sex and Gender Information Value Date Recorded Sex Assigned at Female 03/22/2022 10:37 AM EDT Legal Sex Female 10:37 AM EDT Gender Identity Female 03/22/2022 10:37 AM EDT Sexual Orientation Straight 03/22/2022 10 :37 AM EDT documented as of this encounter Plan of Treatment Not on file documented as of this encounter Visit Diagnoses Not on filedocumented in this encounter
--- OUTSIDE RECORDS SUMMARY | 2024-07-31 16:15 | XMS_ITS | Encounter Summary ---
Author Organization [facility] [employer] Address [address] [place] [address] [address] [place] [address] Care Team Providers Care Bisque Placer Name Role Phone Unavailable Primary Care Provider Unavailabl e Encounter Details Date Type Department Care Team (Latest Contact Info) Description 02/09/2021 Abstract C CONVERSIONS Dental, Provider, DDS Social History Tobacco [...]
--- OUTSIDE RECORDS SUMMARY | 2024-07-31 16:15 | XMS_ITS | Clinical Summary ---
Author Organization [employer] Address [address] [place] [address] [address] [place] [address] Care Team Providers Care Residential Instructor Name Role Phone Unavailable Primary Care Provider Unavailabl e Social History Tobacco Use Types Packs/Day Years Used Date Smoking Tobacco: Never Assessed Comments Unknown Sex and Gender Information Value Date Recorded Sex Assigned at Female 03/22/2022 10:37 AM EDT Legal Sex Female 10:37 AM EDT Gender Identity Female 03/22/2022 10:37 AM EDT Sexual Orientation Straight 03/22/2022 10 :37 AM EDT Plan of Treatment Health Maintenance Due Date Last Done Comments Depression Screening 1993 Alcohol/Substance Use Screening 2005 Tobacco Screening 2005 Family Planning (PISQ) 2008 DTaP/Tdap/Td Vaccines (1 - Tdap) 2012 Hepatitis B Vaccines (1 of 3 - 19+ 3-dose series) 2012 Pap Smear 2014 Cervical Cancer Screening 09/14/2023 HPV/Cotest 09/14/2023 COVID-19 Vaccine (1 - 2023-2 5 season) 2024 Influenza Vaccine (#1) 2024 Zoster Vaccines (1 of 2) 09/14/2043 RSV Patients and Pa tients Aged 60 years or older (1 - 1-dose 75+ series) 2068 HIB Vaccines Aged Out No longer eligi ble based on patient's age to complete this topic HPV Vaccines Aged Out No longer eligi ble based on patient's age to complete this topic Hepatitis A Vaccines Aged Out No long er eligible based on patient's age to complete this topic IPV Vaccines Aged Out No longer eligi ble based on patient's age to complete this topic Meningococcal Vaccine Aged Out No hector declan eligible based on patient's age to complete this topic Pneumococcal Vaccine: Pediat rics (0 to 5 Years) and At-Risk Patients (6 to 49) Years) Aged Out No longer eligible b ased on patient's age to complete this topic RSV under 20 months Aged Out No longe r eligible based on patient's age to complete this topic Rotavirus Vaccines Aged Out No longer eligible based on patient's age to complete this topic
--- OUTSIDE RECORDS SUMMARY | 2024-07-31 16:15 | XMS_ITS ---
Author Organization [facility] Address [address] [place] [address] Care Team Providers Care Gate Cutter Name Role Phone QUINCY THRASHER Unavailable [phone] Encounters Encounter Location Date Provider Diagnosis [facility] [address] [address] 07/23/2024 QUINCY THRASHER PLAN OF TREATMENT No Information Progress Notes * Veronique VILLEDAOB:0 1995 (28 yo F)Acc No.[id number]:07/23/2024 Progress Notes Patient:??Adry VILLEDA Provider:??QUINCY THRASHER :1995?Age:28 Y?Sex:Fe male Date:07/23/2024 Address:[address] [place], [place] [id number] Subjective: * Chief Complaints: * ? * Medical History:?? Objective: Assessment: Plan: * Treatment: * Images: Billing Information: * Visit Code:?? * Procedure Codes:?? * Sign off status: Pending * Provider:??QUINCY THRASHER Date:?? 025
--- OUTSIDE RECORDS SUMMARY | 2024-07-31 16:15 | XMS_ITS ---
Author Organization [facility] Address [address] [place] [address] Care Team Providers Care Raimann Machine Operator Name Role Phone QUINCY THRASHER Unavailable [phone] Encounters Encounter Location Date Provider Diagnosis [facility] [address] [address] 07/27/2024 QUINCY THRASHER PLAN OF TREATMENT No Information Progress Notes * Veronique VILLEDAOB:0 1995 (28 yo F)Acc No.[id number]:07/27/2024 Patient:??Adry VILLEDA Provider:??QUINCY THRASHER :1995?Age:28 Y?Sex:Fe male Date:07/27/2024 Address:[address] [place], [place] [id number] Subjective: * Chief Complaints: * ? * Medical History:?? Objective: Assessment: Plan: * Treatment: * Images: Billing Information: * Visit Code:?? * Procedure Codes:?? * Sign off status: Pending * Provider:??QUINCY THRASHER Date:?? 025
--- OUTSIDE RECORDS SUMMARY | 2024-07-31 16:15 | XMS_ITS | Clinical Summary ---
Author Organization [facility] Address [address] [place] [address] Care Team Providers Care Registrar Assistant Name Role Phone Charley Cedillo PA-C Primary Care Provider [phone] Source Comments PLEASE NOTE, if this patient is a minor, it may be UNLAWFUL to discuss sensitive information that is contained in these records (such as FAMILY PLANNING, MENTAL HEALTH or SUBSTANCE ABUSE) with the minor patient's parent or other person without the patient's specific authorization.[facility] Allergies Active Allergy Reactions Criticality Noted Date Comments Iodine Itching High 05/28/2020 Prednisone SOB Medium 05/28/2020 Shellfish Containing Products 2022 Medications FREESTYLE TEST strips 03/14/20 Active FREESTYLE LANCETS 28 gauge 04/14/20 20 Active metFORMIN (GLUCOPHAGE) 500 mg tabletIndications: Controlled type 2 diabetes mellitus without complication, without long-term current use of insulin ([facility]) TAKE 1 TABLET BY MOUTH EVERY DAY WITH BREAKFAST 90 Tablet 1 06/29/19 23 Active cholecalciferol, vitamin D3, (VITAMIN D3) 25 mcg (1,000 unit) capsuleIndications :Low vitamin D level Take 1 Capsule by mouth once daily 90 Capsule 1 06/29/19 23 Active phentermine 37.5 mg capsule TAKE 1 CAPSULE BY MOUTH DAILY 30 MINUTES BEFORE OR 1-2 HOURS AFTER BREAKFAST 06/24/19 23 Active acetaminophen (TYLENOL) 325 mg tablet Take 650 mg by mouth 01/30/20 20 Active pantoprazole (PROTONIX) 40 mg EC tablet Take 40 mg by mouth once daily 08/05/19 23 Active polyethylene glycol, PEG, 3350 (MIRALAX) 17 gram packet 08/05/19 23 Active CARAFATE 100 mg/mL suspension SHAKE LIQUID AND TAKE 10 ML BY MOUTH TWICE DAILY 09/22/19 23 Active metroNIDAZOLE (FLAGYL) 500 mg tabletIndications: BV (bacterial vaginosis) Take 1 Tablet by mouth 2 (two) times daily Avoid alcohol consumption during treatment and 48 hours post treatment. 14 Tablet 09/30/19 23 Active atorvastatin (LIPITOR) 20 mg tabletIndications: Mixed hyperlipidemia TAKE 1 TABLET BY MOUTH EVERY DAY 90 Tablet 1 04/11/20 23 Active FLOVENT HFA 220 mcg/actuation inhalerIndications :Moderate persistent asthma without complication INHALE 1 PUFF INTO THE LUNGS TWICE DAILY 12 g 2 06/29/19 24 Active loratadine (CLARITIN) 10 mg tabletIndications: Seasonal allergies TAKE 1 TABLET BY MOUTH DAILY NEEDED FOR ALLERGIES 30 Tablet 5 06/29/19 24 Active albuterol HFA (VENTOLIN HFA) 90 mcg/actuation inhalerIndications :Moderate persistent asthma without complication Inhale 2 Puffs into the lungs every 4 to 6 (four to six) hours as needed for shortness of breath or wheezing 18 g 2 07/20/19 24 Active fluticasone (FLOVENT) 110 mcg/actuation inhalerIndications :Moderate persistent asthma without complication Inhale 1 Puff into the lungs 2 (two) times daily 12 g 2 07/20/19 24 Active norgestimate-ethin yl estradioL (ESTARYLLA) 0.25-35 mg-mcg tabletIndications: control counseling TAKE 1 TABLET BY MOUTH DAILY 84 Tablet 2 06/25/19 25 Active Active Problems Problem Noted Date Diagnosed Date Asthma 09/28/2022 09/28/2022 Hypertension 09/28/2022 09/28/2022 Polycystic ovary syndrome 09/28/20222022 Controlled type 2 diabetes m ellitus without complication, without long-term current use of insulin ([facility]) 05/28/2020 Moderate persistent asthma without complication 05/28/2020 Immunizations Name Administration Dates Next Due Flu, Preservative Free 03/04/2022,03/04/2021,10/2020 Hep B,adult,adjuvanted (HEPLISAV) 09/28/2022,11/2022 MODERNA COVID-19 VACCINE BIV ALENT, BLUE CAP, 6M+ 06/29/2022 Moderna COVID-19 Vaccine, re d cap blue label, 12+ Primary Series 09/06/2020,08/08/2020 Novel [id number], pre servative-free, injectable 03/04/2022 PNEUMOCOCCAL POLYSACCHARIDE PPV23 01/16/2019 TDAP 05/28/2020 Family History Medical History Relation Name Comments High Cholesterol Father Hypertension Father Diabetes Maternal Grandfather Diabetes Other 1 1st cousin Diabetes Other 2 1st cousin Relation Name Status Comments Father Maternal Grandfather Other 1 1st cousin Alive Other 2 1st cousin Alive Social History Tobacco Use Types Packs/Day Years Used Date Smoking Tobacco: Never Smokeless Tobacco: Never Tobacco Cessation:Counseling Given: Not Answered Alcohol Use Standard Drinks/Week Comments Yes 0 (1 standard drink = 0.6 oz pure alcohol) only in special occations patient states Social Connections Answer Date Recorded Connectedness 0 06/29/2022 Financial Resource Strain Answer Date R ecorded Financial Resource Strain 0 2022 Stress Answer Date Recorded Stress 0 06/29/2022 Physical Activity Answer Date Recorded Physical Activity 0 04/25/2020 Food Insecurity Answer Date Recorded Food 0 06/29/2022 Transportation Needs Answer Date Record ed Transportation 0 06/29/2022 Housing Stability Answer Date Recorded Housing 0 06/29/2022 Safety and Environment Answer Date Liam rded Safety 0 06/29/2022 Utilities Answer Date Recorded Utilities 0 06/29/2022 Employment Answer Date Recorded Employment 0 04/25/2020 Comments No Sex and Gender Information Value Date Recorded Sex Assigned at Female 06/01/2020 1:33 PM PST Legal Sex Female 11:24 AM PST Gender Identity Female 06/01/2020 1:33 PM PST Sexual Orientation Straight 06/01/2020 1: 33 PM PST Last Filed Vital Signs Vital Sign Reading Time Taken Comments Blood Pressure 120/72 09/28/2022 1:40 PM EDT Pulse 70 09/28/2022 1:40 PM EDT Temperature 36.7 ??C (98 ??F) 09/28/2022 1:40 PM EDT Respiratory Rate 16 09/28/2022 1:40 PM EDT Oxygen Saturation 99% 09/28/2022 1:40 PM EDT Inhaled Oxygen Concentration - - Weight 116.1 kg (256 lb) 09/28/2022 1:40 PM EDT Height 168.5 cm (5' 6.34 ) 09/28/2022 1:40 PM ED T Body Mass Index 40.9 09/28/2022 1:40 PM EDT Plan of Treatment Health Maintenance Due Date Last Done Comments Dental Examination 1993 HPV Screening 1993 Tobacco Screening 1993 Retinopathy Screening 2006 Imm-Pneumococcal (2 of 2 - PCV) 01/17/2020 9 Diabetes Foot Exam 08/29/2021 08/29/2020 STI Counseling 08/20/2022 08/20/2021, 03/04/2021 Annual Preventive Care Visit 06/29/202311/2022, 08/29/2020, 08/28/2020 Relationship Safety Screening/Counseling 06/29/2023 06/29/2022, 08/20/2021, 12/02/2020 Diabetes Microalbumin (w/Creatinine) 07/16/2023 07/16/2022, 12/02/2020 Cervical Cancer Screening 08/29/2023 Pap + HPV 08/29/2023 08/28/2020 Pap Smear 08/29/2023 08/28/2020 Diabetes HbA1c 01/18/2024 07/20/2023, 06/24, 08/26/2021, Additional history exists [id number] (2023- season) 2024 06/29/2022, 04/09/2021, 09/06/2020, Additional history exists Imm-Influenza (#1) 2024 03/04/2022, 1 , 05/28/2020 Alcohol and Drug Screen 05/23/2024 06/29/19 23, 08/20/2021, 12/02/2020, Additional history exists Depression Annual Screen 05/23/2024 06/29/2022 Lipid Screening 07/20/2024 07/20/2023, 06/24, 08/26/2021, Additional history exists Serum Creatinine 07/20/2024 07/20/2023, , 08/26/2021, Additional history exists Imm-DTaP/Tdap/Td (2 - Td or Tdap) 05/28/2030 021 Imm-Hepatitis B Completed 09/28/2022, 06/29/2022 HIV Screening Completed 07/20/2023, 06/0 09/2022, 07/16/2022, Additional history exists Hepatitis C Screening Completed 07/20/2023, 021 Cervical Ablation/Cold-Knife Conization Discontinued Cervical Cryotherapy Discontinued Colposcopy Discontinued Endometrial Biopsy Discontinued Excision/Leep Discontinued HPV Genotyping Discontinued Vaginal Pap Discontinued Vulvoscopy Discontinued Procedures Procedure Name Priority Date/Time Associated Diagnosis Comments HIV 1/2 AG & AB W/RFLX (4TH GEN) Routine 07/20/2023 2:25 PM EST Exposure to sexually transmitted disease (STD) COMPREHENSIVE METABOLIC PANEL Routine 07/20/2023 2:25 PM EST Controlled type 2 diabetes mellitus without complication, without long-term current use of insulin ([facility]) Primary hypertension HEPATITIS C AB W/RFLX HCV RNA, QT, RT PCR Routine 07/20/2023 2:25 PM EST Exposure to sexually transmitted disease (STD) LIPID PANEL Routine 07/20/2023 2:25 PM EST Moderate persistent asthma without complication Controlled type 2 diabetes mellitus without complication, without long-term current use of insulin ([facility]) Primary hypertension HGBA1C W/MPG Routine 07/20/2023 2:25 PM EST Moderate persistent asthma without complication Controlled type 2 diabetes mellitus without complication, without long-term current use of insulin ([facility]) Primary hypertension MICROALBUMIN/CREATINI NE RATIO, URINE, RANDOM Routine 07/16/2022 9:54 AM EST Controlled type 2 diabetes mellitus without complication, without long-term current use of insulin ([facility]) THIN PREP IMAGE PAP + HPV RNA E6/E7 W/RFLX HPV 16, 18/45 Routine 08/28/2020 2:31 PM EDT Encounter for cervical Pap smear with pelvic exam Papanicolaou smear for cervical cancer screening from Last 3 Months or Most Recently Relevant to Health Maintenance Results * HEPATITIS C AB W/RFLX HCV RNA, QT, RT PCR (07/20/2023 2:25 PM EST) HEPATITIS C ANTIBODY NON-REACT SAMMY NON-REACT SAMMY [facility] Comment: HCV antibody was non-reactive. There is no laboratory evidence of HCV infection. In most cases, no further action is required. However, if recent HCV exposure is suspected, a test for HCV RNA (test code 51041) is suggested. For additional information please refer to http://Restlet.[employer]/faq/IGX30l1 (This link is being provided for informational/ educational purposes only.) Blood Blood / Unknown 07/20/2023 2 :25 PM EST 07/20/2023 2:26 PM EST [facility] - BLOOD DRAW Final Result [facility] [address] [address], [facility] [address] [address] * HIV 1/2 AG & AB W/RFLX (4TH GEN) (07/20/2023 2:25 PM EST) HIV AG/AB, 4TH GEN NON-REAC TIVE NON-REAC TIVE [facility] Comment: HIV-1 antigen and HIV-1/HIV-2 antibodies were not detected. There is no laboratory evidence of HIV infection. PLEASE NOTE: This information has been disclosed to you from records whose confidentiality may be protected by state law. ??If your state requires such protection, then the state law prohibits you from making any further disclosure of the information without the specific written consent of the person to whom it pertains, or as otherwise permitted by law. A general authorization for the release of medical or other information is NOT sufficient for this purpose. ?? For additional information please refer to http://Restlet.[employer]/faq/XZX462 (This link is being provided for informational/ educational purposes only.) The performance of this assay has not been clinically validated in patients less than 2 years old. Blood Blood / Unknown 07/20/2023 2 :25 PM EST 07/20/2023 2:26 PM EST us [facility] - BLOOD DRAW Final Result Performing Organization Address [facility] [[email or web address]] de Phone Number [facility] [address] [address], [facility] [address] [address] * HGBA1C W/MPG (07/20/2023 2:25 PM EST) HEMOGLOBIN A1C 5.0 <5.7 % of total Hgb [facility] Comment: For the purpose of screening for the presence of diabetes: <5.7% ? Consistent with the absence of diabetes 5.7-6.4% ?Consistent with increased risk for diabetes ?(prediabetes) > or =6.5% ??Consistent with diabetes This assay result is consistent with a decreased risk of diabetes. Currently, no consensus exists regarding use of hemoglobin A1c for diagnosis of diabetes in children. According to [place] Diabetes Association (ADA) guidelines, hemoglobin A1c <7.0% represents optimal control in non- diabetic patients. Different metrics may apply to specific patient populations. Standards of Medical Care in Diabetes(ADA). ?? MEAN PLASMA GLUCOSE 101 mg/dL (calc) [facility] Blood Blood / Unknown 07/20/2023 2 :25 PM EST 07/20/2023 2:26 PM EST us [facility] - BLOOD DRAW Edited Result - Final Performing Organization Address [facility] Co de Phone Number [facility] [address] [address], [facility] [address] [address] * LIPID PANEL (07/20/2023 2:25 PM EST) CHOLESTEROL, TOTAL 146 <200 mg/dL [facility] HDL CHOLESTEROL 62 > OR = 50 mg/dL [facility] TRIGLYCERIDES 58 <150 mg/dL [facility] LDL-CHOLESTEROL 71 99 mg/dL (calc) [facility] Comment: Reference range: <100 Desirable range <100 mg/dL for primary prevention; ?? <70 mg/dL for patients with CHD or diabetic patients with > or = 2 CHD risk factors. LDL-C is now calculated using the David calculation, which is a validated novel method providing better accuracy than the Friedewald equation in the estimation of LDL-C. Paulino SCHILLING et al. RADHA. 2013;310(19): 7015-8497 (http://education.[employer]/faq/KUQ955) CHOL/HDLC RATIO 2.4 <5.0 (calc) [facility] NON-HDL CHOLESTEROL 84 <130 mg/dL (calc) [facility] Comment: For patients with diabetes plus 1 major ASCVD risk factor, treating to a non-HDL-C goal of <100 mg/dL (LDL-C of <70 mg/dL) is considered a therapeutic option. Blood Blood / Unknown 07/20/2023 2 :25 PM EST 07/20/2023 2:26 PM EST [facility] - BLOOD DRAW Final Result [facility] [address] [place] [id number], [facility] [address] [address] * (ABNORMAL) COMPREHENSIVE METABOLIC PANEL (07/20/2023 2:25 PM EST) [facility] GLUCOSE 136(H) 65 - 99 mg/dL [facility] Comment: ?Fasting reference interval For someone without known diabetes, a glucose value >125 mg/dL indicates that they may have diabetes and this should be confirmed with a follow-up test. UREA NITROGEN (BUN) 9 7 - 25 mg/dL [facility] CREATININE (blood) 0.63 0.50 - 0.96 mg/dL [facility] EGFR 123 > OR = 60 mL/min/1. 73m2 [facility] BUN/CREATININE RATIO SEE NOTE: [facility] Comment: ?? Not Reported: BUN and Creatinine are within ?? reference range. ? SODIUM 138 135 - 146 mmol/L [facility] POTASSIUM 4.1 3.5 - 5.3 mmol/L [facility] CHLORIDE 103 98 - 110 mmol/L [facility] CARBON DIOXIDE 26 20 - 32 mmol/L [facility] CALCIUM 9.4 8.6 - 10.2 mg/dL [facility] PROTEIN, TOTAL 7.3 6.1 - 8.1 g/dL [facility] ALBUMIN 4.2 3.6 - 5.1 g/dL [facility] GLOBULIN 3.1 1.9 - 3.7 g/dL (calc) [facility] ALBUMIN/GLOBULI N RATIO 1.4 1.0 - 2.5 (calc) [facility] BILIRUBIN, TOTAL 0.6 0.2 - 1.2 mg/dL [facility] ALKALINE PHOSPHATASE 53 31 - 125 U/L [facility] AST 14 10 - 30 U/L [facility] ALT 23 6 - 29 U/L [facility] Blood Blood / Unknown 07/20/2023 2 :25 PM EST 07/20/2023 2:26 PM EST [facility] - BLOOD DRAW Edited Result - Final [facility] [address] [address], [facility] [address] [address] * MICROALBUMIN/CREATININE RATIO, URINE, RANDOM (07/16/2022 9:54 AM EST) CREATININE, RANDOM URINE 179 20 - 275 mg/dL [facility] MICROALBUMIN 2.1 mg/dL [facility] Comment: Reference Range Not established MICROALBUMIN/CREA TININE RATIO, RANDOM URINE 12 <30 mcg/mg creat [facility] Comment: The ADA defines abnormalities in albumin excretion as follows: Albuminuria Category ?Result (mcg/mg creatinine) Normal to Mildly increased ?? <30 Moderately increased ? 30-299 Severely increased ? > OR = 300 The ADA recommends that at least two of three specimens collected within a 3-6 month period be abnormal before considering a patient to be within a diagnostic category. Urine Urine specimen / Unknown 07/16/2022 9:54 AM EST 07/16/2022 9:55 AM EST us Charley Cedillo PA-C LAB - NO BLOOD DRAW Final Re sult [facility] [address] [place] [address] [address] [place] [address], [facility] [address] [place] [address] (NL2) [place] [address] * THIN PREP IMAGE PAP + HPV RNA E6/E7 W/RFLX HPV 16, 18/45 (08/28/2020 2:31 PM EDT) CLINICAL INFORMATION See Note [facility] Comment:Routine exam LMP See Note [facility] Comment:[id number] PREV. PAP [facility] PREV. BX See Note [facility] Comment:NONE GIVEN SOURCE See Note [facility] Comment:Cervix STATEMENT OF ADEQUACY See Note [facility] Comment: Satisfactory for evaluation. Endocervical/transformation zone component present. INTERPRETATION/RESU LT See Note [facility] Comment:Negative for intraep ithelial lesion or malignancy. COMMENT See Note [facility] Comment: This Pap test has been evaluated with computer assisted technology. DRY CLEANING TEACHER See Note Narrative Comment: CMG, CT(ASCP) CT screening location: [address] ??[address] COMMENT [facility] HPV MRNA E6/E7 Not Detected Not Detected [facility] Comment: Methodology: Blunger Loader-Mediated Amplification This assay detects E6/E7 viral messenger RNA (mRNA) from 14 high-risk HPV types (16,18,31,33,35,39,45,51,52,56,58,59,66,68). The analytical performance characteristics of this assay have been determined by [employer]. The modifications have not been cleared or approved by the FDA. This assay has been validated pursuant to the CLIA regulations and is used for clinical purposes. For additional information, please refer to http://education.[employer]/faq/CZU927a6 (This link if provided for information/ educational purposes only.) Cervix Cervix uteri structure / Unknown 08/28/2020 2:31 PM EDT 08/29/2020 5:11 AM EDT Narrative [facility] - 08/30/2020 8:53 PM EDT EXPLANATORY NOTE: The Pap is a screening test for cervical cancer. It is not a diagnostic test and is subject to false negative and false positive results. It is most reliable when a satisfactory sample, regularly obtained, is submitted with relevant clinical findings and history, and when the Pap result is evaluated along with historic and current clinical information. Charley Cedillo PA-C LAB - NO BLOOD DRAW Final Re sult [facility] [address] [address], [facility] [address] [address] from Last 3 Months or Most Recently Relevant to Health Maintenance Insurance [employer] [employer] [facility]) Member Subscriber Plan / Payer (Ef fective 2023-Present) Name:Irma Villeda Relation to Subscriber:Self Name:Irma Villeda Payer ID:[id number] Group ID:Not on file Type:Indemnity Address: [address] [place] [id number] Care Teams Registrar Assistant Relationship Specialty Start Date End Date Charley Cedillo PA-C [address] [place] [address] PCP - General FAMILY MEDICINEDAYO 04/22/20
== END 2024-07-31 14:16 | disposition home or self-care (01) ==
LOC: HO.HBS 13:24
PROVIDERS: PCP Physician Assistant Medical; Visit Provider Physician Assistant Surgical
DX: E66.813 Obesity, class 3 (principal); Z68.42 Body mass index [BMI] 45.0-49.9, adult; Z90.3 Acquired absence of stomach [part of]; Z98.84 Bariatric surgery status
CPT/HCPCS: 99214

== ENCOUNTER → 2024-07-31 13:24 | Outpatient (BNVA) | payer OTHER, SELFPAY | PROVIDERS: PCP Physician Assistant Medical; Visit Provider Physician Assistant Surgical ==

== ENCOUNTER 2025-03-29 10:26 | Outpatient (AMB) | payer OTHER, SELFPAY ==
--- OUTSIDE RECORDS SUMMARY | 2024-07-23 09:45 | XMS_ITS ---
Author Organization [facility] [address] Address [address] [place] [address] Care Team Providers Care It Infrastructure Manager Name Role Phone ANNA MARIEANDREWQUINCY Unavailable [phone] Encounters Encounter Location Date Provider Diagnosis [facility] [address] [address] 07/23/2024 QUINCY THRASHER Plan Of Treatment No Information Progress Notes * Veronique TAMEZOB:0 1995 (29 yo F)Acc No.[id number]:07/23/2024 Progress Notes Patient: Merle Irma CHAO Provider: Julisa THRASHER :1995 A ge:28 Y S ex:Female Date:07/23/2024 Address:[address] [place], [place] [id number] Subjective: * Chief Complaints: * * Medical History: Objective: * Vitals: Assessment: Plan: * Treatment: * Images: Billing Information: * Visit Code: * Procedure Codes: * Electronic signature of ANGEL THRASHER PA-C, [id number] on 03/29/2025 at 12:20 PM EST Sign off status: Pending * Provider: Julisa THRASHER Date: 0 07/23/2024 Generated for Alex lopez/Les/Junaid on: 1 05/29/2024 12:20 PM EST
--- OUTSIDE RECORDS SUMMARY | 2024-07-27 03:15 | XMS_ITS ---
Author Organization [facility] [address] Address [address] [place] [address] Care Team Providers Care Mellowing Machine Operator Name Role Phone ANNA MARIE QUINCY Unavailable [phone] Encounters Encounter Location Date Provider Diagnosis [facility] [address] [address] 07/27/2024 QUINCY THRASHER Plan Of Treatment No Information Progress Notes * Veronique TAMEZOB:0 1995 (29 yo F)Acc No.[id number]:07/27/2024 Patient: Irma CLEANING Provider: Julisa THRASHER :1995 A ge:28 Y S ex:Female Date:07/27/2024 Address:[address] [place], [place] [id number] Subjective: * Chief Complaints: * * Medical History: Objective: * Vitals: Assessment: Plan: * Treatment: * Images: Billing Information: * Visit Code: * Procedure Codes: * Electronic signature of ANGEL THRASHER PA-C, [id number] on 03/29/2025 at 12:20 PM EST Sign off status: Pending * Provider: Julisa THRASHER Date: 0 07/27/2024 Generated for Alex lopez/Les/Juniad on: 1 05/29/2024 12:20 PM EST
--- NOTE | 2025-03-29 10:23 | A.OFFVIS_ITS ---
Intake Visit Reasons: TV PO LSG 08/19/22 *GLP-1* Allergies Seasonal Allergies Allergy (Intermediate, Verified 04/05/24 13:22) Sneezing prednisone Adverse Reaction (Severe, Verified 04/05/24 13:22) Abdominal Pain Dust Mite Mixed Allergen Ext Allergy (Severe, Uncoded 02/23/23 13:03) Sneezing shellfish, iodine, cockroaches Allergy (Unknown, Uncoded 02/23/23 13:03) Itching Medication List - Last Reconciled 03/29/25 by DAYO Colindres albuterol sulfate 90 mcg/actuation (ProAir HFA) 2 puffs inhalation Q6H PRN cetirizine 10 mg PO DAILY fluticasone propionate 100 mcg/actuation (Flovent Diskus) 1 inh inhalation Q12H loratadine 10 mg PO DAILY HPI Comments Details: This?is a?29?yo F who is s/p LSG 08/19/2022. Presents for 2 year 8 month post op visit. Weight at last visit on 07/31/2024 was 288.8 pounds; she is unsure of current weight but thinks she is back to pre-surgery weight of around 315lb. No complaints of nausea, emesis, abdominal pain or reflux, or constipation. Been seeing a therapist to separate my feelings from my health. Had taken phentermine in the past- doesn't prefer this option. Present meal plan includes: not structured had tried XspandI slime but got tired of shakes/bars no current exercise routine [facility] Medical History Snores Anxiety Depression Hyperlipidemia Non-insulin dependent type 2 diabetes mellitus PCOS (polycystic ovarian syndrome) Asthma Morbid obesity Surgical History No pertinent past surgical history Family History Mother Hypertension Father Hypertension Social History Household Members: Family Housing: House Are you a primary medical care manager to a significant other at home: No Do you presently have visiting nurse or other home services: No Alcohol intake: former Patient Tobacco Use Status: Never used Tobacco Substance Use Type: Marijuana service: No Telehealth Telehealth Telehealth Platform: Telephone Location of provider rendering services: other Location of patient: address on file Patient Identification confirmed using: Name, : Yes Telehealth method: voice only Patient verbally consented to treatment: Yes Patient verbally consented to billing insurance company: Yes Patient informed of any privacy concerns related to visit: Yes Minutes spent on Phone/Video with Pt.: 18 Assessment & Plan Assessment & Plan (1) Morbid obesity: Code(s): E66.01 - Morbid (severe) obesity due to excess calories Category: Medical (2) S/P laparoscopic sleeve gastrectomy: Code(s): Z98.84 - Bariatric surgery status Category: Surgical Plan Pt is interested in weight loss medications. We discussed that whether or not she uses meds she still needs a good nutrition plan that is high in protein. Discussed that it is difficult to lose and maintain weight loss without incorporating any shakes or bars at all. I sent her SLID slime info again. She would like a BackTrack discount form so will mail out to her. She will contact her insurance company to ask about weight loss med coverage. We discussed GLP1 self pay as well as Contrave. She is interested in discussing with her therapist as well. Reminded to have labs done. Will schedule next f/u based on pt's decision on weight loss meds.
--- OUTSIDE RECORDS SUMMARY | 2025-03-29 12:20 | XMS_ITS | Encounter Summary ---
Author Organization [employer] Address [address] [facility] [address] [place] [address] Care Team Providers Care Quality Improvement Coordinator (Rn) Name Role Phone Unavailable Primary Care Provider [...]
--- OUTSIDE RECORDS SUMMARY | 2025-03-29 12:20 | XMS_ITS | Patient Health Record ---
Author Organization [facility] Address [address] [place] [address] Care Team Providers Care Television Actor Name Role Phone QUINCY THRASHER Unavailable [phone] Reason For Referral No Information Plan Of Treatment No Information Insurance Providers Payer Name Payer Address Payer Phone Subscriber Number Group Number Insured Name Patient Relationship to Insured Coverage Start Date Coverage End Date [facility] [address] [place] [address] [id number] Irma Romero Self - patient is the insured
--- OUTSIDE RECORDS SUMMARY | 2025-03-29 12:20 | XMS_ITS | Clinical Summary ---
Author Organization [employer] Address [address] [facility] [address] [place] [address] Care Team Providers Care Recreational Leader Name Role Phone Unavailable Primary Care Provider [...] Date Last Done Comments Depression Screening 1993 Disability Screening 1993 Alcohol/Substance Use Screening 2005 Tobacco Screening 2005 Family Planning (PISQ) 2008 HPV Vaccines (1 - 3-dose series) 2008 DTaP/Tdap/Td Vaccines (1 - Tdap) 2012 Hepatitis B Vaccines (1 of 3 - 19+ 3-dose series) 2012 Pap Smear 2014 Cervical Cancer Screening 09/14/2023 HPV/Cotest 09/14/2023 COVID-19 Vaccine (1 - 2023-2 5 season) 2025 Influenza Vaccine (#1) 2025 Zoster Vaccines (1 of 2) 09/14/2043 RSV [...] patient's age to complete this topic Meningococcal B Vaccine Aged Out No l onger eligible based on patient's age to complete this topic Meningococcal Vaccine Aged Out No hector declan eligible based on patient's age to complete this topic Pneumococcal Vaccine: Pediat rics (0 to 5 Years) and At-Risk Patients (6 to 49) Years Aged Out No longer eligible b ased on patient's age to complete this topic RSV under 20 months Aged Out No longe r eligible based on patient's age to complete this topic Rotavirus Vaccines Aged Out No longer eligible based on patient's age to complete this topic
--- OUTSIDE RECORDS SUMMARY | 2025-03-29 12:20 | XMS_ITS | Encounter Summary ---
Author Organization [employer] Address [address] [facility] [address] [place] [address] Care Team Providers Care Deburrer Strip Name Role Phone Unavailable Primary Care Provider Unavailabl e Encounter Details Date Type Department Care Team (Latest Contact Info) Description 04/10/2020 Abstract [facility] CONVERSIONS Dental, Provider, DDS Social History Tobacco [...]
== END 2025-03-29 10:49 | disposition home or self-care (01) ==
LOC: HO.HBS 10:26
PROVIDERS: PCP Physician Assistant Medical; Visit Provider Physician Assistant Surgical
DX: E66.01 Morbid (severe) obesity due to excess calories (principal); Z68.42 Body mass index [BMI] 45.0-49.9, adult; Z90.3 Acquired absence of stomach [part of]; Z98.84 Bariatric surgery status
CPT/HCPCS: 98013

== ENCOUNTER 2025-04-10 07:15 | Outpatient (REF) | payer OTHER, SELFPAY ==
[2025-04-10 07:34] LABS: MANUAL DIFF FLAG NO
[2025-04-10 08:05] LABS: Hematocrit 42.4 % (37.0-47.0); Hemoglobin 13.8 g/dl (12.0-16.0); Imm Gran Abs Auto 0.03 X10*3/uL (0.00-0.03); Imm Gran Pct Auto 0.3 % (0.0-0.4); Lymphocytes Absolute Auto 3.2 X10*3/uL (1.2-4.9); Mean Corpuscular HGB Conc 32.5 g/dl (31.0-35.0); Mean Corpuscular Hemoglobin 26.8 pg (27.0-33.0); Mean Corpuscular Volume 82.3 fL (80.0-98.0); NRBC Abs Auto 0.000 X10*3/uL (0.0-0.012); NRBC Pct Auto 0.0 /100WBC (0.0-0.2); Platelet Count 276 X10*3/uL (160-400); Red Blood Count 5.15 X10*6/uL (4.20-5.50); White Blood Count 10.5 X10*3/uL (4.8-10.8)
[2025-04-10 08:38] LABS: Alanine Aminotransferase 32 U/L (0-31); Albumin Level 3.9 g/dL (3.5-5.0); Alkaline Phosphatase 44 U/L (39-117); Anion Gap 12 (12-20); Aspartate Amino Transferase 23 U/L (5-31); Blood Urea Nitrogen 11 mg/dL (9-16); Calcium 8.5 mg/dL (8.4-10.2); Carbon Dioxide 25 mmol/L (22-29); Chloride 108 mmol/L (96-108); Cholesterol 173 mg/dL (<200); Estimated Glomerular Filt Rate > 60; HDL Cholesterol 50 mg/dL (>40); Iron 94 mcg/dL (30-160); Percent Iron Saturation 34 % (15-50); Potassium 3.6 mmol/L (3.3-5.1); Sodium 141 mmol/L (135-145); Total Iron Binding Capacity 276 mcg/dL (228-428); Total Protein 7.3 g/dL (6.5-8.0); Triglycerides 79 mg/dL (<150); Unsaturated Iron Binding 182 ug/dL
[2025-04-10 08:57] LABS: Ferritin 89 ng/mL (10-122)
[2025-04-10 09:13] LABS: Folate 15.2 ng/mL (> or = 4.0); Vitamin B12 628 pg/mL (200-900)
--- OUTSIDE RECORDS SUMMARY | 2025-04-10 15:03 | XMS_ITS | Encounter Summary ---
Author Organization [employer] Address [address] [facility] [address] [place] [address] Care Team Providers Care Ethnic Origins Teacher Name Role Phone Unavailable Primary Care Provider [...]
--- OUTSIDE RECORDS SUMMARY | 2025-04-10 15:03 | XMS_ITS | Encounter Summary ---
Author Organization [employer] Address [address] [facility] [address] [place] [address] Care Team Providers Care Equipment Analyst Name Role Phone Unavailable Primary Care Provider Unavailabl e Encounter Details Date Type Department Care Team (Latest Contact Info) Description 04/10/2020 Abstract [facility] CONVERSIONS Dental, Provider, DDS Social History Tobacco [...]
--- OUTSIDE RECORDS SUMMARY | 2025-04-10 15:03 | XMS_ITS | Clinical Summary ---
Author Organization [employer] Address [address] [facility] [address] [place] [address] Care Team Providers Care Crew Mess Attendant Name Role Phone Unavailable Primary Care Provider [...] 09/14/2023 HPV/Cotest 09/14/2023 COVID-19 Vaccine (1 - 2024-2 6 season) 2025 Influenza Vaccine (#1) 2025 Zoster [...]
== END 2025-04-10 07:16 | disposition home or self-care (01) ==
LOC: HO.LAB 07:15
PROVIDERS: PCP Physician Assistant Medical; Visit Provider Physician Assistant Surgical
DX: E11.9 Type 2 diabetes mellitus without complications (principal); K76.0 Fatty (change of) liver, not elsewhere classified; E55.9 Vitamin D deficiency, unspecified; Z98.84 Bariatric surgery status; E78.5 Hyperlipidemia, unspecified
CPT/HCPCS: 36415; 80053; 80061; 82306; 82607; 82728; 82746; 83036; 83525; 83540; 84425; 84443; 84590; 84630; 85025; 86140